=== PATIENT | female | born 2000 | race Caucasian/White ===

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

== ENCOUNTER → 2019-03-29 12:56 | Outpatient (CLI) | payer OTHER, SELFPAY ==
[2019-03-29 13:43] LABS: Absolute Neutrophil Count 3.6 X10^3/uL (2.0-7.7); Basophil# 0.07 X10^3/uL; Eosinophil# 0.18 X10^3/uL; Eosinophils% 2.6 % (0-5); Hematocrit 44.6 % (37-47); Lymphocyte % 36.1 % (19-41); Mean Corp Hgb Conc 31.4 g/dL (32-36); Mean Corpuscular Hgb 25.4 pg (27.0-32.0); Mean Corpuscular Volume 80.8 fL (81-99); Mean Platelet Vol. 10.1 fl (6.2-12.0); Monocyte# 0.53 X10^3/uL; Monocyte% 7.6 % (0-10); NRBC Flagged by Analyzer 0 % (0-5); Neutrophil # 3.63 X10^3/uL (2.7-7.7); Neutrophil % 52.4 % (47-70); Platelet Count 336 K/mm3 (150-450); RBC Distribution Width CV 14.7 % (11.6-14.6); RBC Distribution Width SD 42.9 fl (35.1-43.9); Red Blood Count 5.52 M/mm3 (4.2-5.4); White Blood Count 6.9 K/mm3 (4.4-11.0)
[2019-03-29 13:47] LABS: Anion Gap 8 (5-15); BUN 9 mg/dL (7-18); Calcium,Total 9.7 mg/dL (8.5-10.1); Chloride 107 mmol/L (98-107); Cholesterol 186 mg/dL (200); Creatinine, Serum 0.82 mg/dL (0.55-1.02); EST Glomerular Filtration Rate 95 mL/min (>60); Est Glom Filt Rate - Afr Amer 115 mL/min (>60); Glucose 88 mg/dL (74-106); High Density Lipoprotein 63 mg/dL; Potassium 4.3 mmol/L (3.5-5.1); Sodium Level 141 mmol/L (136-145); Triglycerides 138 mg/dL; Very Low Density Lipoprotein 28 mg/dL (5-40)
== END ==
PROVIDERS: Family Provider Family Medicine; PCP Family Medicine; Referring Provider Family Medicine; Visit Provider Family Medicine
DX: Z00.00 Encounter for general adult medical examination without abnormal findings (principal)
CPT/HCPCS: 80048; 80061; 85025

== ENCOUNTER 2019-10-15 01:14 | Emergency (ER) | payer OTHER, SELFPAY ==
[2019-10-15 01:16] VITALS: BP 125/73; PULSE 85; RESP 16; TEMP 36.4; O2SAT 98; BMI 31.2
--- NOTE | 2019-10-15 01:42 | RAD_ITS ---
STUDY: X-RAY LEFT FOOT, FIRST TOE REASON FOR EXAM: Female, 19 years old. Dropped a weight on lt great toe -- c/o pain entire toe TECHNIQUE: 3 view(s) of the toe were obtained. COMPARISON: None. FINDINGS: Normal visualized metatarsus. Normal metatarsophalangeal (M.T.P) joint. Normal interphalangeal joints. Normal phalanges and interphalangeal joints. There is soft tissue edema. RAD/Toe(s) Min 2 Views IMPRESSION: Soft Tissue edema. No visualized acute fracture. Electronically Signed: Ariadna Moffett MD at 2:16 EDT Tel , Service support ,
[2019-10-15 02:12] VITALS: RESP 16
--- NOTE | 2019-10-15 02:12 | ED.VIS.LOWEX ---
History of Present Illness Chief Complaint: Lower Extremity Injury Informant: Patient Occurred: Hours - 4 Mechanism/Context: Injury - accidentally dropped a heavy flat plate for weight lifting on her left great toe Context: Sudden Onset Timing: Continuous Quality of Pain: Throbbing Location: L great toe Current Severity: Severe Maximum Severity: Severe Worsened by: walking Relieved by: nothing Associated Symptoms: Negative for: Parasthesia, Weakness, Loss of Funtion Narrative: Denies other injury. Saw hematoma under her nail, try to puncture it with a hot paperclip but was unsuccessful, and it hurt too bad to continue. Past Medical History - Allergies and Home Meds Allergies/Adverse Reactions: Allergies amoxicillin trihydrate [From Augmentin] Allergy (Verified 08/05/18 08:53) Hives nickel [Nickel] Allergy (Verified 08/05/18 08:53) Rash potassium clavulanate [From Augmentin] Allergy (Verified 08/05/18 08:53) Hives Primary Care Physician: Gabriele Sanchez MD [Primary Care Provider] - Past Medical History: None Smoking Status: Never smoker Review of Systems General: Denies: Chills, Fever, Sweats Musculoskeletal: Reports: Extremity Pain Skin: Denies: Rash, Abscess Neurological: Denies: Weakness, Numbness Physical Exam Vital Signs/Narrative: Vital Signs Temp Pulse Resp BP Pulse Ox 10/15/19 01:16 97.6 F L 85 16 125/73 H 98 Inital Vital Signs reviewed: Yes - Extremity Exam Left Foot: Negative for: Limited ROM - Nontender throughout foot except for great toe Left Toe: - - Great toe tender near the IP joint where there is a subungual hematoma. No deformity or swelling. General: Well nourished, Well developed, - - NAD Skin: Normal color, No rash, Trauma - left great toe subungual hematoma beneath base of nail. no bleeding, skin/nail intact. Neurological: Alert, Oriented x3, Cranial nerves II-XII grossly intact, Normal Strength, Normal Sensation, Normal Gait Psychological: Normal affect, Normal Mood Diagnostic/Tx/Re-eval - Medical Decision Making On my interpretation, 3 views of the left great toe are negative for fracture. Subungual hematoma was treated, she is improved, dressed with a bandage and advised to use bacitracin at home until there is no more drainage. Procedures Procedure(s): Nail trephination for subungual hematoma --after isopropanol prep, using a high temperature probe, nail was trephinated over 1 of the holes that the patient had already attempted, over the hematoma. This was successful in draining blood from the area. Dressed with a bandage. ED Disposition - Plan for ED Patient: Disposition: Home or Assisted Living Diagnosis: Subungual hematoma of great toe of left foot Instructions: ED Hematoma Subungual Referrals: Gabriele Sanchez MD [Primary Care Provider] - As Needed
== END 2019-10-15 02:25 | disposition home or self-care (01) ==
PROVIDERS: Emergency Provider Emergency Medicine; PCP Family Medicine
DX: S90.212A Contusion of left great toe with damage to nail, initial encounter (principal); W22.8XXA Striking against or struck by other objects, initial encounter; Y93.9 Activity, unspecified; Y92.9 Unspecified place or not applicable
CPT/HCPCS: 11740; 11730; 73660; 99282

== ENCOUNTER → 2019-10-22 10:22 | Outpatient (CLI) | payer OTHER, SELFPAY ==
[2019-10-15 01:16] VITALS: BMI 31.2
--- NOTE | 2019-10-22 10:28 | RAD_ITS ---
STUDY: X-RAY - RIGHT ANKLE REASON FOR EXAM: Female, 19 years old. Pain. History of prior surgery. TECHNIQUE: 3 view(s) of the ankle. COMPARISON: None. FINDINGS: There is a lucency in the lateral malleolus which is likely due to to prior hardware. There is no evidence of fracture or dislocation. There are no significant degenerative changes. There are no radiodense foreign bodies. RAD/Ankle min 3 Views IMPRESSION: No fracture or dislocation. Lucency in the lateral malleolus which is likely due to prior hardware. Correlation with the patient''s surgical history is recommended. Electronically Signed: Jerson Whitmore, at 18:03 EDT Tel , Service support ,
== END ==
PROVIDERS: PCP Family Medicine; Referring Provider Nurse Practitioner Family; Visit Provider Nurse Practitioner Family
DX: S99.911A Unspecified injury of right ankle, initial encounter (principal); M25.571 Pain in right ankle and joints of right foot
CPT/HCPCS: 73610

== ENCOUNTER → 2020-03-08 | Outpatient (CLI) | payer OTHER, SELFPAY ==
[2020-03-08 11:53] VITALS: BMI 31.2
[2020-03-08 16:22] LABS: Red Blood Cells-Urine 0 SEEN /hpf (0-5)
[2020-03-08 16:53] LABS: Color, Urine Yellow (Yellow); Glucose, Dipstick Normal (Normal); Ketone-Dipstick Negative (Negative); Leukocyte Esterase-Dipstick 25 /ul (Negative); Nitrite-Dipstick Negative (Negative); Occult Blood-Urine 10 /ul (Negative); Protein-Dipstick 15 mg/dl (Negative); Specific Gravity, Urine 1.015 (1.002-1.030); Urine Bilirubin Dipstick Negative (Negative); Urine Clarity Clear (Clear); Urine Urobilinogen Normal (Normal)
[2020-03-08 16:54] LABS: Bacteria 2+ /hpf (None Seen); Squamous Epithelial Cells - UA 10-25 SEEN /hpf (5-10); White Blood Cells 0-5 SEEN /hpf (0-5)
[2020-03-08 16:55] LABS: Calcium Oxalate Crystals Ur RARE /hpf (<or=2+); Mucous, Urine 1+ /hpf (<or=2+)
== END | disposition home or self-care (01) ==
LOC: LABSPEC 15:25
PROVIDERS: PCP Family Medicine; Referring Provider Physician Assistant Surgical; Visit Provider Physician Assistant Surgical
DX: N39.0 Urinary tract infection, site not specified (principal)
CPT/HCPCS: 81001; 87086

== ENCOUNTER → 2020-03-13 07:56 | Outpatient (CLI) | payer OTHER, SELFPAY ==
[2020-03-08 11:53] VITALS: BMI 31.2
--- NOTE | 2020-03-13 08:30 | MRI_ITS ---
STUDY: MRI RIGHT KNEE REASON FOR EXAM: Female, 19 years old. Knee pain and clicking TECHNIQUE: Standardized fat and water weighted pulse sequences were obtained in all 3 orthogonal planes. COMPARISON: None. FINDINGS: Normal medial meniscus. Normal hyaline cartilage of the medial femorotibial compartment. Normal medial femoral condyle and tibial plateau. Normal medial collateral ligamentous complex (MCL). Normal distal semimembranosus, gracilis and semitendinosus tendons. Normal lateral meniscus. Normal hyaline cartilage of the lateral femorotibial compartment. Normal lateral femoral condyle and tibial plateau. Normal proximal tibiofibular articulation. Normal lateral collateral (fibular) ligament. Normal popliteus tendon. Normal biceps femoris tendon. Normal anterior cruciate ligament (ACL). Normal posterior cruciate ligament (PCL). Shallow trochlear groove with lateral subluxation of patella and edema superolateral Hoffa''s fat pad consistent with patellofemoral maltracking. Grade II chondromalacia and erosion of the lateral facet of patella with a small focus of subchondral edema. Normal medial and lateral patellar retinaculum. Normal quadriceps tendon. Normal patellar tendon. Normal Hoffa''s fat pad. There is no joint effusion. The soft tissues are unremarkable. The otherwise visualized osseous structures are unremarkable. MRI/Lower Ext Joint Only (Routine) IMPRESSION: Patellofemoral maltracking. Electronically Signed: Jacek Tai MD at 13:47 EST Tel , Service support ,
== END ==
PROVIDERS: PCP Family Medicine; Referring Provider Registered Nurse; Visit Provider Registered Nurse
DX: M25.561 Pain in right knee (principal)
CPT/HCPCS: 73721

== ENCOUNTER → 2020-03-15 10:02 | Outpatient (CLI) | payer OTHER, SELFPAY ==
[2020-03-15 08:00] VITALS: BMI 29.7
[2020-03-17 03:06] LABS: Chlamydia By Nucleic Acid AMP Negative (Negative)
[2020-03-17 09:27] LABS: Gonococcus By Nucleic Acid AMP Negative (Negative)
== END ==
PROVIDERS: PCP Family Medicine; Referring Provider Physician Assistant Surgical; Visit Provider Physician Assistant Surgical
DX: N89.8 Other specified noninflammatory disorders of vagina (principal)
CPT/HCPCS: 87491; 87591

== ENCOUNTER 2020-04-28 16:30 | Outpatient (RCR) | payer OTHER, SELFPAY ==
[2020-03-15 08:00] VITALS: BMI 29.7
--- NOTE | 2020-03-25 13:15 | HP.PTEVAL_ITS ---
Patient's Visit Information DI LIM is a 19 year old F referred to Physical Therapy by Alexei Vallejo PA-C with a diagnosis of Other disorders of the patella. Date of Evaluation: 03/25/20 Physical Therapist: Anam Issa, MEGHAT, OCS, CSCS - Visit Plan Frequency: 2-3x /Week Duration: 4-6 Weeks Plan: 3x/week for 3-6 weeks for. 1. VMO and hip stab strengthening progression to I. 2. Verify full body workout technique without knee pain. 3. strecht/rollout quad and ITB R. 4. consider bracing, 0rthotics at 3 week andres if not improving. - Subjective Insidious onset of R knee pain since ankle surgery 2014. Has had knee pain last couple years. More rated as discomfort at 1-2/10 pain at most wehn working out. Leg extension hurt as do squats. Works out daily with weightlifting and running at times. Hasn't run since December due to ankle, knee pain. Steps can hurt. Comfortable at rest. Sleep is OK. Worked in [employer] when issue started. Works at [employer] 8 hour shift [employer] it is fine. Enjoys hunting adn has other hobbies that are unaffected by knee. - Pain R knee Pain Intensity (Out of 10): 0 Pain Intensity Range: 0, 2 - Objective Walks normal, jogs normal, steps normal but painful R knee cap slightly ascending. Transfers normal bed and chair. B ITB and quad tightness apparent. weakness in hips obvious at 3+ abd and ext B, felxion is 4-. knee strength 4+/5 B ext adn flexion. ankles 4/5 B. Has mild pes planus B in feet. Patellas move well. Sensation WNL to gross light touch in LE. - varus and valgus in knees. - anterior drawer. - post sag. slight + R patellar grind. - bounce hoe B. - Goals Goal 1:: Patient feel 75% better in knee pain r Goal Time Frame: 4-6 Weeks Goal 2:: Pateint able to get through full body workout without increased pain Goal Time Frame: 4-6 Weeks Goal 3:: I appropr HEP to minimzie future problems Goal Time Frame: 4-6 Weeks Goal 4:: [id number] Goal Time Frame: 4-6 Weeks - Rehabilitation Potential Physical Therapy Diagnosis: R knee pain patellar tracking. Rehabilitation Potential: Fair - Anticipated Interventions Patient/Client Instruction: Educate patient on: Condition, Plan of Care For the Purpose of:: To decrease pain, To increase tolerance to activity/condition/position, To improve gait and locomotor functions Therapeutic Exercise to Include: Strength training, Flexibilty training For the Purpose of:: To decrease pain, To improve muscle performance and motor function, To improve ability of physical actions for home/community/work/leisure Thank you for the opportunity to evaluate your patient. For Medicare and Medicare HMO plans, please review the plan of care and approve it. It will need to be FAXED BACK to us at [phone] for Medicare purposes. For Medicare only, by signing this I certify the plan of care. Please let me know if there are questions or concerns regarding this plan of care. Physician Signature: Date:
--- NOTE | 2020-04-28 16:58 | HP.PTDCSUM ---
It has been my pleasure to treat DI LIM referred by Alexei Vallejo PA-C, with the diagnosis of Other disorders of the patella for a total of 10 visit(s). Discharge Date: 04/28/20 Please see the following information for a summary of their discharge status. Subjective: No pain walking in. No pain in 3 weeks. Been doing deadlifts. Cannot squat or stairmaster still without pain. Sleeping OK. Life normal outside of workout. R knee Pain Intensity (Out of 10): 4 % Improvement: 0 Objective/Function: Much less noise and crpitus in L knee with squats and stairmaster with orthoitc in shoe vs without it. Overall patient is feeling great outside of squats and deadlifts and stairmaster whcih she really wants to do. She needs to wear orhtotics and try these activities over the next week. then report to doctor in one week for other options if necessary. Goal 1:: Patient feel 75% better in knee pain r Goal Progress: Not Progressing Goal 2:: Pateint able to get through full body workout without increased pain Goal Progress: Not Progressing Goal 3:: I appropr HEP to minimzie future problems Goal Progress: Goal Met Goal 4:: [id number]/80 Goal Progress: slow Plan: d/c, pt to doctor next week. Discharge Comments: to doctor next week. If there are questions or concerns regarding this patient's physical therapy, please feel free to call me at [phone]. Thank you for the referral of this patient. Sincerely, Anam Issa, DPT, OCS, CSCS
== END 2020-04-28 19:00 | disposition home or self-care (01) ==
LOC: PT 16:30
PROVIDERS: PCP Family Medicine; Referring Provider Physician Assistant; Visit Provider Physician Assistant
DX: M22.8X1 Other disorders of patella, right knee (principal)
CPT/HCPCS: 97110; 97161; 97530; 97760; 97763

== ENCOUNTER → 2020-10-05 14:56 | Outpatient (CLI) | payer OTHER, SELFPAY ==
[2020-03-15 08:00] VITALS: BMI 29.7
== END ==
PROVIDERS: PCP Family Medicine
DX: B00.9 Herpesviral infection, unspecified (principal)
CPT/HCPCS: 36415

== ENCOUNTER → 2021-01-20 15:59 | Outpatient (CLI) | payer OTHER, SELFPAY ==
[2021-01-20 18:11] LABS: Absolute Lymphocyte Count 2.55 X10^3/uL (0.83-4.51); Absolute Neutrophil Count 4.8 X10^3/uL (2.0-7.7); Basophil# 0.04 X10^3/uL; Basophil% 0.5 % (0-1); Eosinophil# 0.08 X10^3/uL; Hematocrit 39.4 % (37-47); Hemoglobin 13.1 g/dL (12.0-15.0); Lymphocyte # 2.55 X10^3/ul (0.83-4.51); Mean Corp Hgb Conc 33.2 g/dL (32-36); Mean Corpuscular Hgb 26.6 pg (27.0-32.0); Mean Corpuscular Volume 80.1 fL (81-99); Mean Platelet Vol. 10.9 fl (6.2-12.0); Monocyte# 0.45 X10^3/uL; Monocyte% 5.7 % (0-10); NRBC Flagged by Analyzer 0 % (0-5); Neutrophil # 4.81 X10^3/uL (2.7-7.7); Neutrophil % 60.4 % (47-70); Platelet Count 235 K/mm3 (150-450); RBC Distribution Width SD 37.2 fl (35.1-43.9); Red Blood Count 4.92 M/mm3 (4.2-5.4)
[2021-01-20 18:30] LABS: Vitamin D,25 Hydroxy 24.9 ng/mL
[2021-01-20 18:40] LABS: ALB/GLOB Ratio 1.2 RATIO (0.9-2.4); AST(SGOT) 14 U/L (15-37); Alanine Aminotransfer ALT/SGPT 22 U/L (13-56); Albumin, Serum 4.3 g/dL (3.2-5.0); Alkaline Phosphatase 60 U/L (45-117); Anion Gap 8 (5-15); BUN 14 mg/dL (7-18); BUN/Creat Ratio 16.4 RATIO (10-20); Calcium,Total 9.1 mg/dL (8.5-10.1); Chloride 105 mmol/L (98-107); Creatinine, Serum 0.85 mg/dL (0.55-1.02); EST Glomerular Filtration Rate 89 mL/min (>60); Est Glom Filt Rate - Afr Amer 108 mL/min (>60); Globulin 3.6 g/dL (2.2-4.2); Glucose 82 mg/dL (74-106); Potassium 3.8 mmol/L (3.5-5.1); Protein, Total 7.9 g/dL (6.4-8.2); Sodium Level 137 mmol/L (136-145); Thyroid Stim Hormone (TSH) 0.81 uIU/mL (0.358-3.74)
== END ==
PROVIDERS: PCP Family Medicine; Referring Provider Nurse Practitioner Family; Visit Provider Nurse Practitioner Family
DX: R53.83 Other fatigue (principal)
CPT/HCPCS: 36415; 80053; 82306; 84443; 85025

== ENCOUNTER → 2022-11-06 | Outpatient (CLI) | payer OTHER, SELFPAY ==
[2022-11-06 12:20] LABS: Absolute Lymphocyte Count 2.47 X10^3/uL (0.83-4.51); Absolute Neutrophil Count 3.9 X10^3/uL (2.0-7.7); Basophil# 0.04 X10^3/uL; Basophil% 0.6 % (0-1); Eosinophil# 0.13 X10^3/uL; Eosinophils% 1.9 % (0-5); Hemoglobin 13.5 g/dL (12.0-15.0); Lymphocyte # 2.47 X10^3/ul (0.83-4.51); Lymphocyte % 35.2 % (19-41); Mean Corp Hgb Conc 33.8 g/dL (32-36); Mean Corpuscular Hgb 27.6 pg (27.0-32.0); Mean Corpuscular Volume 81.6 fL (81-99); Mean Platelet Vol. 10.3 fl (6.2-12.0); Monocyte# 0.49 X10^3/uL; NRBC Flagged by Analyzer 0 % (0-5); Neutrophil # 3.85 X10^3/uL (2.7-7.7); Neutrophil % 54.7 % (47-70); Platelet Count 236 K/mm3 (150-450); RBC Distribution Width CV 12.7 % (11.6-14.6); RBC Distribution Width SD 37.6 fl (35.1-43.9)
[2022-11-06 21:38] LABS: HIV - WCH Non-Reactive (Nonreactive); Hepatitis B Surface Antigen Non-Reactive (Nonreactive); Hepatitis C Antibody Non-Reactive (Nonreactive); Rubella IgG Reactive (Nonreactive); Syphilis Antibodies Non-reactive
[2022-11-09 07:08] LABS: Chlamydia By Nucleic Acid AMP Negative (Negative); Gonococcus By Nucleic Acid AMP Negative (Negative)
[2022-11-10 18:15] LABS: HPV Reflexed? NOT INDICATED
== END | disposition home or self-care (01) ==
PROVIDERS: PCP Family Medicine; Referring Provider Registered Nurse; Visit Provider Registered Nurse
DX: Z34.90 Encounter for supervision of normal pregnancy, unspecified, unspecified trimester (principal)
CPT/HCPCS: 36415; 85025; 86703; 86762; 86780; 86803; 86850; 86900; 86901; 87086; 87340; 87491; 87591; 88175; G0145

== ENCOUNTER → 2023-01-22 | Outpatient (CLI) | payer OTHER, SELFPAY ==
--- NOTE | 2023-01-22 13:29 | US_ITS ---
STUDY: SECOND AND THIRD TRIMESTER OBSTETRICAL ULTRASOUND REASON FOR EXAM: Female, 22 years old anatomy LMP: September 04, 2022. TECHNIQUE: Transabdominal and Transvaginal TECHNICAL QUALITY: Adequate. PRIOR ULTRASOUND: None. FINDINGS: There is a single intrauterine fetus. The fetus is in a breech presentation. There is demonstrated cardiac activity with a heart rate of 154 bpm. There is a normal amniotic fluid volume. The largest amniotic fluid pocket measures 4.5 cm x 6.4 cm. The amniotic fluid index (HÉCTOR) is within normal limits. The placenta is anterior in location and is not low lying. There are Grade 0 placental changes. The cervix measures 3.4 cm in length. The adnexal regions are not visualized. BIOMETRY: BPD: 4.82 cm: 20 weeks, 4 days HC: 18.58 cm: 20 weeks, 6 days AC: 15.53 cm: 20 weeks, 5 days FL: 3.27 cm: 20 weeks, 2 days CI: 73.3% FL/BPD: 67.9% FL/HC: FL/AC: 21.1% HC/AC: 1.2 age by current US: 20 weeks, 5 days. TAYLOR by current US: June 05, 2022. Estimated weight: 359 grams, +/- 54 grams, 74 %. Age by LMP: 20 weeks, 0 days. TAYLOR by LMP: June 10, 2022. ANATOMY: Cranium: Normal lateral ventricles. Normal choroid plexus. Normal cerebellum. Normal cisterna magna. Normal face, nose and lips. Chest: Normal 4-chamber heart. Abdomen/Pelvis: Normal diaphragm. Normal stomach. Normal abdominal wall. Normal cord insertion. Normal 3 vessel cord. Findings suggestive of a nuchal cord. Normal kidneys. The bladder was not visualized. Spine: Subvisualization of the spine due to position. Extremities: Normal bilateral upper extremities. Normal bilateral lower extremities. IMPRESSION: Single live uterine gestation with a mean gestational age of 20 weeks and 5 days. Limited visualization of the spine due to the position. Findings suggestive of a nuchal cord. Electronically Signed: Lorenzo Stearns MD at 8:16 EST , STUDY: FIRST TRIMESTER OBSTETRICAL ULTRASOUND REASON FOR EXAM: Female, 22 years old . Cervical length measurement. LMP: September 04, 2022 TECHNIQUE: Transvaginal TECHNICAL QUALITY: Adequate. PRIOR ULTRASOUND: None. FINDINGS: Cervical length measures 3.4 cm. US/OB Anatomy Scan IMPRESSION: Cervical length measures 3.4 cm. Electronically Signed: Lorenzo Stearns MD at 8:17 EST ,
== END | disposition home or self-care (01) ==
LOC: OPUS 13:27
PROVIDERS: PCP Family Medicine; Referring Provider Obstetrics & Gynecology; Visit Provider Obstetrics & Gynecology
DX: O09.90 Supervision of high risk pregnancy, unspecified, unspecified trimester (principal); Z3A.00 Weeks of gestation of pregnancy not specified
CPT/HCPCS: 76805; 76817

== ENCOUNTER → 2023-02-07 | Outpatient (CLI) | payer OTHER, SELFPAY ==
--- NOTE | 2023-02-07 11:37 | US_ITS ---
HISTORY: anatomy follow up for spine views -- and 4 chamber heart. TECHNIQUE: Transabdominal pelvic ultrasound was performed. 52 images. COMPARISON: 01/22/2023. FINDINGS: INTRAUTERINE GESTATION(s): Single. PRESENTATION: Cephalic. HEART MOTION: 1. 48 bpm. PLACENTA: Anterior, grade 0. No placenta previa. CERVIX: 4.1 cm long and closed AMNIOTIC FLUID: Main vertical fluid pocket 6.4 cm ANATOMY: Four-chamber heart, spine unremarkable on limited survey. US/OB Limited (No Biometrics) IMPRESSION: Single living intrauterine with unremarkable limited anatomic survey as above. Electronically Signed: Nemo Dugan MD at 10:20 EST ,
== END | disposition home or self-care (01) ==
LOC: US 11:36
PROVIDERS: PCP Family Medicine; Referring Provider Obstetrics & Gynecology; Visit Provider Obstetrics & Gynecology
DX: O09.90 Supervision of high risk pregnancy, unspecified, unspecified trimester (principal); Z3A.00 Weeks of gestation of pregnancy not specified
CPT/HCPCS: 76815

== ENCOUNTER → 2023-03-22 | Outpatient (CLI) | payer OTHER, SELFPAY ==
[2023-03-22 07:59] LABS: Absolute Lymphocyte Count 1.73 X10^3/uL (0.83-4.51); Absolute Neutrophil Count 4.4 X10^3/uL (2.0-7.7); Basophil# 0.07 X10^3/uL; Eosinophil# 0.25 X10^3/uL; Eosinophils% 3.6 % (0-5); Hemoglobin 11.7 g/dL (12.0-15.0); Lymphocyte # 1.73 X10^3/ul (0.83-4.51); Mean Corp Hgb Conc 33.4 g/dL (32-36); Mean Corpuscular Hgb 27.2 pg (27.0-32.0); Mean Corpuscular Volume 81.4 fL (81-99); Mean Platelet Vol. 9.8 fl (6.2-12.0); Monocyte# 0.48 X10^3/uL; Monocyte% 6.9 % (0-10); NRBC Flagged by Analyzer 0 % (0-5); Neutrophil # 4.36 X10^3/uL (2.7-7.7); Neutrophil % 63.1 % (47-70); Platelet Count 226 K/mm3 (150-450); RBC Distribution Width CV 12.7 % (11.6-14.6); RBC Distribution Width SD 37.5 fl (35.1-43.9); White Blood Count 6.9 K/mm3 (4.4-11.0)
[2023-03-22 08:12] LABS: Glucose Challenge Gest 1H 50g 95 mg/dL (70-140)
[2023-03-22 08:45] LABS: HIV - WCH Non-Reactive (Nonreactive); Syphilis Antibodies Non-reactive
== END | disposition home or self-care (01) ==
PROVIDERS: Referring Provider Registered Nurse; Visit Provider Registered Nurse
DX: Z34.90 Encounter for supervision of normal pregnancy, unspecified, unspecified trimester (principal)
CPT/HCPCS: 36415; 82950; 85025; 86703; 86780; 86850; 86900; 86901

== ENCOUNTER 2023-05-10 10:40 | Outpatient (CLI) | payer OTHER, SELFPAY ==
[2023-05-10 10:58] VITALS: BP 129/76; PULSE 83; TEMP 36.9
[2023-05-10 11:10] VITALS: BMI 37.0
[2023-05-10 11:14] LABS: ROM Internal Control Test YES-OK TO RESULT pt. (Internal QC)
[2023-05-10 11:34] LABS: ROM Patient Test Negative (Negative)
[2023-05-10 12:01] VITALS: BP 122/77; PULSE 81
--- NOTE | 2023-05-15 17:25 | OB.TRI.PN_ITS ---
Progress Notes Date of Service: 05/10/23 Progress Note: Patient presents for triage evaluation secondary to possible rupture of membranes FHT: 140 Moderate variability reactive no decelerations category I tracing [place]: iregular Contractions Assessment and plan: amniotic membranes intact rom negative Reactive NST, reassuring maternal and status patient discharged to home to follow-up as scheduled. See problem list details for additional plan information. Laboratory Studies: Laboratory Tests 05/10/23 Range/Units 11:05 Vag Amniotic Fld Detect Negative (Negative) Charges/Coding Procedures Urinary/Genital 52xxx-59xxx: 23617-27 non-stress test Interp
== END 2023-05-10 11:45 | disposition home or self-care (01) ==
LOC: WPOUT 10:44 → WP 10:45
PROVIDERS: Referring Provider Obstetrics & Gynecology; Visit Provider Obstetrics & Gynecology
DX: O47.9 False labor, unspecified (principal); Z3A.00 Weeks of gestation of pregnancy not specified
CPT/HCPCS: 59025; 59050; 84112; 99221; G0378

== ENCOUNTER 2023-05-11 09:08 | Outpatient (CLI) | payer OTHER, SELFPAY ==
[2023-05-11 09:27] VITALS: O2SAT 98
[2023-05-11 09:28] VITALS: BP 128/78; PULSE 96; TEMP 36.9; O2SAT 98
[2023-05-11] MEDS: Ondansetron 4 MG/2 ML Vial IV (11:11)
[2023-05-11] MEDS: Lactated Ringers 500 ML 999 ML IV (11:11)
--- NOTE | 2023-05-11 18:53 | OB.TRI.HP_ITS ---
HPI - General General Date of Service: 05/11/23 HPI Narrative DI LIM, is a 22 F who presents to [facility] with cramping, nausea and vomiting since 1am. denies LOF/VB. good fm. Maternal Data Information TAYLOR Calculator Estimated Delivery Date Method Current WG Current Estimate 06/11/23 LMP (Certain) 35w 4d PFSH PFSH Home Medications NK 11/06/22 [History Last Taken Unknown] Allergy/AdvReac Type Severity Reaction Status Date / Time amoxicillin trihydrate Allergy Hives Verified 04/30/23 14:44 [From Augmentin] nickel [Nickel] Allergy Rash Verified 04/30/23 14:44 potassium clavulanate Allergy Hives Verified 04/30/23 14:44 [From Augmentin] Surgical History History of ankle surgery S/P tonsillectomy and adenoidectomy Social History adopted: No household members: significant other 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 pets and animals: dog(s) history of recent travel: No sexually active: Yes Smoking Status: Never smoker Tobacco: How many years used: 4 how long ago did patient quit smokin yr alcohol intake: current alcohol intake frequency: holidays/special occasions only details: not while substance use type: does not use well-balanced diet: about half the time caffeine: Yes Type: coffee Number of servings: 1 eating out: 1-3 times/week during the past year weight has: remained stable what type of physical activity do you participate in: weight training frequency: 1-2 times per week duration: 60-90 minutes/day tammie/christianity: None seatbelt use: always do you feel safe at home: Yes additional social history: Arnaldo Calvert Specialist History 1 Elective abortions Hx Para 0 Spontaneous abortions Hx # Term Pregnancies Ectopic pregnancies Hx # Pregnancies Multiple births # of living children Visit Details Expected Delivery Route/Plan Labor Preferences- CB/BF classes:enc. labor support person: Kel labor intervention preferences: [] pain management options preferred: limited intervention ok with epidural if requested cut cord/dad catch: yes : yes PP control planned: [] discussed possible routes of delivery and associated risks: [] special requests: []n Plans Covid status: declined Flu vaccine: declined Tdap vaccine: declined Rhogam: given LARC form signed: declined movement and labor precautions reviewed. Problem list reviewed and updated with the most current plan of care details and appropriate orders placed. Relevant counseling for the gestational age provided. Continue routine care and follow up unless otherwise noted in visit notes/problem list details OB Flowsheet Initial Weight: 191 lb Date -?-?-?-?-?-?-?-?-?-?-?-?- EGA Weight BP Urine Prot -?-?-?-?-?-?-?-?-?-?-?-?- Glucose FHR FuHt Pres Dilation -?-?-?-?-?-?-?-?-?-?-?-?- Effaced St Visit Note 11/06/22 -?-?-?-?-?-?-?-?-?--?-?-?- 9w 0d 191 lb (+0 oz) 118/68 Negative -?-?-?-?-?-?-?-?-?-?-?-?- Negative 180 -?-?-?-?-?-?-?-?-?-?-?-?- LC- CRL 20 c/w L MP. TAYLOR 06/11/2023. considering NIPT. 12/08/22 -?-?-?-?-?-?-?-?-?-?-?-?- 13w 4d 194 lb 4 oz (+3 lb 4 oz) 97/53 Negative -?-?-?-?-?-?-?-?-?-?-?-?- Negative 156 -?-?-?-?-?-?-?-?-?-?-?-?- JV- no complaint s today. declines flu shot and declines nipt. 01/03/23 -?-?-?-?-?-?-?-?--?-?-?-?- 17w 2d 204 lb 8 oz (+13 lb 8 oz) 126/71 Negative -?-?-?-?-?-?-?-?-?-?-?-?- Negative 156 -?-?-?-?-?-?-?-?-?-?-?-?- JV- no lof, vagi nal bleeding, or dec fm. found out having a girl. 01/31/23 -?-?-?-?-?-?-?-?-?-?-?-?- 21w 2d 209 lb 2 oz (+18 lb 2 oz) 111/68 Trace -?-?-?-?-?-?-?-?-?-?-?-?- Negative 150 -?-?-?-?-?-?-?-?-?-?-?-?- LC- no vb/ctx/lo f. good fm. no concerns. needs spine repeat u/s images. 03/05/23 -?-?-?-?-?-?-?-?-?-?-?-?- 26w 0d 217 lb 8 oz (+26 lb 8 oz) 113/63 Negative -?-?-?-?-?-?-?-?-?-?-?-?- Negative 145 26 -?-?-?-?-?-?-?-?-?-?-?-?- LC_ LC- no vb/ctx/lof. good fm.2 8 week labs ordered. 03/22/23 -?-?-?-?-?-?-?-?-?-?-?-?- 28w 3d 225 lb (+34 lb) 122/83 Negative -?-?-?-?-?-?-?-?-?-?-?-?- Negative 145 28 -?-?-?-?-?-?-?-?-?-?-?-?- KW-no vb/lof/ctx . good fm. LARC and Rhogam today. Tdap discussed and wants to think about. labs reviewed. Work note for light duty 04/04/23 -?-?-?-?-?-?-?-?-?-?-?-?- 30w 2d 227 lb 4 oz (+36 lb 4 oz) 108/67 Negative -?-?-?-?-?-?-?-?-?-?-?-?- Negative 141 30 -?-?-?-?-?-?-?-?-?-?-?-?- MH-No VB, LOF. G ood FM. Denies concerns 04/19/23 -?-?-?-?-?-?-?-?-?-?-?-?- 32w 3d 229 lb (+38 lb) 121/76 Negative -?-?-?-?-?-?-?-?-?-?-?-?- Negative 140 32 -?-?-?-?-?-?-?-?-?-?-?-?- SM- no vb lof go od fm no regular ctx discussed work leave, plan off from 36-37 on and discussed off 12 weeks after 04/30/23 -?-?-?-?-?-?-?-?-?-?-?-?- 34w 0d 236 lb (+45 lb) 129/73 -?-?-?-?-?-?-?-?-?-?-?-?- 140 34 -?-?-?-?-?-?-?-?-?-?-?-?- SM- no vb lof go od fm no regualr ctx NST FHR Rate Baby A Baseline: 145 Variability:: Moderate Accelerations:: 15 x 15 NST Reactive:: Yes FHR Category:: Category I Uterine Activity:: irregular Assessment & Plan (1) Nausea & vomiting: COMMENT: 1L LR and 4mg zofran. improved symptoms following interventions. PLAN: Plan Patient presents for triage evaluation secondary to cramping/ nv. given 1L LR bolus and 4mg zofran with improved symptoms. no contractions noted after bolus with improved symptoms. FHT: Moderate variability reactive no decelerations category I tracing [place]: Contractions Assessment and plan: Reactive NST, reassuring maternal and status patient discharged to home to follow-up in office with Rx sent for zofran. See problem list details for additional plan information. Charges/Coding Procedures Urinary/Genital 52xxx-59xxx: 45355-79 non-stress test Interp
== END 2023-05-11 13:15 | disposition home or self-care (01) ==
LOC: WPOUT 09:19 → WP 09:22
PROVIDERS: Referring Provider Registered Nurse; Visit Provider Registered Nurse
DX: O21.9 Vomiting of pregnancy, unspecified (principal); Z3A.35 35 weeks gestation of pregnancy
CPT/HCPCS: 96374; 96361; 59025; 59050; 99221; J7120; G0378; J2405

== ENCOUNTER → 2023-05-15 | Outpatient (CLI) | payer OTHER, SELFPAY | END | disposition home or self-care (01) | LOC: LABSPEC 16:19 | PROVIDERS: Referring Provider Obstetrics & Gynecology; Visit Provider Obstetrics & Gynecology | DX: O09.90 Supervision of high risk pregnancy, unspecified, unspecified trimester (principal); Z3A.00 Weeks of gestation of pregnancy not specified | CPT/HCPCS: 87081 ==

== ENCOUNTER 2023-05-29 22:50 | Outpatient (CLI) | payer OTHER, SELFPAY ==
[2023-05-10 10:58] VITALS: RESP 16
[2023-05-11 09:28] VITALS: RESP 17
[2023-05-29 23:10] VITALS: BMI 38.2
[2023-05-29 23:13] VITALS: BP 121/65; PULSE 84; RESP 16; TEMP 37; O2SAT 98
[2023-05-29 23:45] LABS: ROM Internal Control Test YES-OK TO RESULT pt. (Internal QC); ROM Patient Test Negative (Negative); Record Kit Lot#, ROM+ K1374
--- NOTE | 2023-05-31 17:22 | OB.TRI.PN_ITS ---
Progress Notes Date of Service: 05/31/23 Progress Note: Patient presents for triage evaluation secondary to vaginal discharge, R/O SROM FHT: 125 Moderate variability reactive no decelerations category I tracing [place]: irregular Contractions Assessment and plan: neg ROM Reactive NST, reassuring maternal and status patient discharged to home to follow-up in office. See problem list details for additional plan information. Laboratory Studies: Laboratory Tests 05/29/23 Range/Units 23:15 Vag Amniotic Fld Detect Negative (Negative) Charges/Coding Multi Select Codes Urinary/Genital Urinary/Genital CPT Codes: 67031-26 non-stress test Interp Assessment & Plan (1) Nausea & vomiting: COMMENT: 1L LR and 4mg zofran. improved symptoms following interventions. (2) Rh negative status during : QUALIFIERS: Trimester: third trimester Qualified Code(s): O26.893 - Other specified related conditions, third trimester; Z67.91 - Unspecified blood type, Rh negative COMMENT: rhogam given at 28 weeks and pp if needed. (3) Supervision of high-risk : QUALIFIERS: Trimester: third trimester Qualified Code(s): O09.93 - Supervision of high risk , unspecified, third trimester COMMENT: PRR GIRL! 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
== END 2023-05-29 23:55 | disposition home or self-care (01) ==
LOC: WPOUT 22:57 → WP 22:58
PROVIDERS: Visit Provider Advanced Practice Midwife
DX: O99.891 Other specified diseases and conditions complicating pregnancy (principal); N89.8 Other specified noninflammatory disorders of vagina; Z3A.00 Weeks of gestation of pregnancy not specified; O98.519 Other viral diseases complicating pregnancy, unspecified trimester; B00.9 Herpesviral infection, unspecified; O26.899 Other specified pregnancy related conditions, unspecified trimester
CPT/HCPCS: 59025; 59050; 84112; 99221; G0378

== ENCOUNTER 2023-06-12 22:20 | Inpatient (IN) | payer OTHER, SELFPAY ==
[2023-06-12 21:55] VITALS: BP 143/87; PULSE 89
[2023-06-12 22:31] VITALS: BMI 38.1
[2023-06-12] MEDS: Lactated Ringers 1,000 ML 50 ML IV (22:35)
[2023-06-12 22:45] VITALS: RESP 16; TEMP 37.2; O2SAT 99
[2023-06-12 22:47] VITALS: BP 132/77; PULSE 171; PULSE 98; O2SAT 78; O2SAT 99
--- NOTE | 2023-06-12 22:48 | HP.PCM.OB_ITS ---
HPI - General General Date of Admission: 06/12/23 HPI Narrative DI LIM, is a 22 F who presents IAL 4-5 cm regular ctx no vb lof admits good fm Maternal Data Information TAYLOR Calculator Estimated Delivery Date Method Current WG Current Estimate 06/11/23 LMP (Certain) 40w 1d PFSH PFSH Medical History (Updated 06/12/23 @ 22:[address] Melanie Gold MD) Anxiety Home Medications valacyclovir 500 mg tablet (Valtrex) 500 mg PO QDAY hsv #30 tabs 05/15/23 [Rx Last Taken 05/29/23 08:00] Allergy/AdvReac Type Severity Reaction Status Date / Time amoxicillin trihydrate Allergy Hives Verified 06/12/23 22:08 [From Augmentin] nickel [Nickel] Allergy Rash Verified 06/12/23 22:08 potassium clavulanate Allergy Hives Verified 06/12/23 22:08 [From Augmentin] Surgical History (Updated 06/12/23 @ 22:35 by Edda Sebastian) History of ankle surgery History of surgery S/P tonsillectomy and adenoidectomy Social History adopted: No household members: significant other 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 pets and animals: dog(s) history of recent travel: No sexually active: Yes Smoking Status: Never smoker Tobacco: How many years used: 4 how long ago did patient quit smokin yr alcohol intake: current alcohol intake frequency: holidays/special occasions only details: not while substance use type: does not use well-balanced diet: about half the time caffeine: Yes Type: coffee Number of servings: 1 eating out: 1-3 times/week during the past year weight has: remained stable what type of physical activity do you participate in: weight training frequency: 1-2 times per week duration: 60-90 minutes/day tammie/rastafarian: None seatbelt use: always do you feel safe at home: Yes additional social history: Arnaldo Calvert Specialist History 1 Elective abortions Hx Para 0 Spontaneous abortions Hx # Term Pregnancies Ectopic pregnancies Hx # Pregnancies Multiple births # of living children Visit Details Expected Delivery Route/Plan Labor Preferences- CB/BF classes:enc. labor support person: Kel labor intervention preferences: [] pain management options preferred: limited intervention ok with epidural if requested cut cord/dad catch: yes : yes PP control planned: [] discussed possible routes of delivery and associated risks: [] special requests: []n Plans Covid status: declined Flu vaccine: declined Tdap vaccine: declined Rhogam: given LARC form signed: declined movement and labor precautions reviewed. Problem list reviewed and updated with the most current plan of care details and appropriate orders placed. Relevant counseling for the gestational age provided. Continue routine care and follow up unless otherwise noted in visit notes/problem list details OB Flowsheet Initial Weight: 191 lb Date -?-?-?-?-?-?-?-?-?-?-?-?- EGA Weight BP Urine Prot -?-?-?-?-?-?-?-?-?-?-?-?- Glucose FHR FuHt Pres Dilation -?-?-?-?-?-?-?-?-?-?-?-?- Effaced St Visit Note 11/06/22 -?-?-?-?-?-?-?-?-?-?-?-?- 9w 0d 191 lb (+0 oz) 118/68 Negative -?-?-?-?-?-?-?-?-?-?-?-?- Negative 180 -?-?-?-?-?-?-?-?-?-?-?-?- LC- CRL 20 c/w L MP. TAYLOR 06/11/2023. considering NIPT. 12/08/22 -?-?-?-?-?-?-?-?-?-?-?-?- 13w 4d 194 lb 4 oz (+3 lb 4 oz) 97/53 Negative -?-?-?-?-?-?-?-?-?-?-?-?- Negative 156 -?-?-?-?-?-?-?-?-?-?-?-?- JV- no complaint s today. declines flu shot and declines nipt. 01/03/23 -?-?-?-?-?-?-?-?-?-?-?-?- 17w 2d 204 lb 8 oz (+13 lb 8 oz) 126/71 Negative -?-?-?-?-?-?-?-?-?-?-?-?- Negative 156 -?-?-?-?-?-?-?-?-?-?-?-?- JV- no lof, vagi nal bleeding, or dec fm. found out having a girl. 01/31/23 -?-?-?-?-?-?-?-?-?-?-?-?- 21w 2d 209 lb 2 oz (+18 lb 2 oz) 111/68 Trace -?-?-?-?-?-?-?-?-?-?-?-?- Negative 150 -?-?-?-?-?-?-?-?-?-?-?-?- LC- no vb/ctx/lo f. good fm. no concerns. needs spine repeat u/s images. 03/05/23 -?-?-?-?-?-?-?-?-?-?-?-?- 26w 0d 217 lb 8 oz (+26 lb 8 oz) 113/63 Negative -?-?-?-?-?-?-?-?-?-?-?-?- Negative 145 26 -?--?-?-?-?-?-?-?-?-?-?-?- LC_ LC- no vb/ctx/lof. good fm.2 8 week labs ordered. 03/22/23 -?-?-?-?-?-?-?-?-?-?-?-?- 28w 3d 225 lb (+34 lb) 122/83 Negative -?-?-?-?-?-?-?-?-?-?-?-?- Negative 145 28 -?-?-?-?-?-?-?-?-?-?-?-?- KW-no vb/lof/ctx . good fm. LARC and Rhogam today. Tdap discussed and wants to think about. labs reviewed. Work note for light duty 04/04/23 -?-?-?-?-?-?-?-?-?-?-?-?- 30w 2d 227 lb 4 oz (+36 lb 4 oz) 108/67 Negative -?-?-?-?-?-?-?-?-?-?-?-?- Negative 141 30 -?-?-?-?-?-?-?-?-?-?-?-?- MH-No VB, LOF. G ood FM. Denies concerns 04/19/23 -?-?-?-?-?-?-?-?-?-?-?-?- 32w 3d 229 lb (+38 lb) 121/76 Negative -?-?-?-?-?-?-?-?-?-?-?-?- Negative 140 32 -?-?-?-?-?-?-?-?-?-?-?-?- SM- no vb lof go od fm no regular ctx discussed work leave, plan off from 37 on and discussed off 12 weeks after 04/30/23 -?-?-?-?-?-?-?-?-?-?-?-?- 34w 0d 236 lb (+45 lb) 129/73 -?-?-?-?-?-?-?-?-?-?-?-?- 140 34 -?-?-?-?-?-?-?-?-?-?-?-?- - no vb lof go od fm no regualr ctx 05/15/23 -?-?-?-?-?-?-?-?-?-?-?-?- 36w 1d 236 lb (+45 lb) 94/62 Negative -?-?-?-?-?-?-?-?-?-?-?-?- Negative 135 36 Cephalic 1 -?-?-?-?-?-?--?-?-?-?-?-?- 50 -2 SM- no vb lof good fm no regular ctx 05/22/23 -?-?-?-?-?-?-?-?-?-?-?-?- 37w 1d 236 lb (+45 lb) 109/73 Negative -?-?-?-?-?-?-?-?-?-?-?-?- Negative 135 38 Cephalic 2 -?-?-?-?-?-?-?-?-?-?-?-?- 60 -2 kw-no vb/l of/ctx. good fm. Valtrex started. labor precautions. 05/29/23 -?-?-?-?-?-?-?-?-?-?-?-?- 38w 1d 234 lb 2 oz (+43 lb 2 oz) 122/78 -?-?-?-?-?-?-?-?-?-?-?-?- 150 38 Cephalic 2 -?-?-?-?-?-?-?-?-?-?-?-?- 60 -2 KW- no vb/ lof/reg ctx. good fm. 06/05/23 -?-?-?-?-?-?-?-?-?-?-?-?- 39w 1d 241 lb 6 oz (+50 lb 6 oz) 120/82 Negative -?-?-?-?-?-?-?-?-?-?-?-?- Negative 140 41 Cephalic 2 -?-?-?-?-?-?-?-?-?-?-?-?- 70 -2 kw- no vb/ lof/ctx. good fm. Discussed 40-41 week IOL. discussed increased risks with IOL before 41 week and probably will be moved. understands and requesting IOL at 40 weeks 06/08/23 -?-?-?-?-?-?-?-?-?-?-?-?- 39w 4d 240 lb 4 oz (+49 lb 4 oz) 128/79 -?-?-?-?-?-?-?-?-?-?-?-?- 140 40 Cephalic 3 -?-?-?-?-?-?-?-?-?-?-?-?- 70 -2 KW- no vb/ lof/ctx. good fm. IOL set up for Sunday. membrane sweep today NST FHR Rate Baby A Baseline: 140 Variability:: Moderate Accelerations:: 15 x 15 Decelerations:: None NST Reactive:: Yes FHR Category:: Category I Uterine Activity:: q3-5 ROS Constitutional Constitutional: Reports systems reviewed and no addt'l complaints, except as documented ENT HEENT: Reports systems reviewed and no addt'l complaints, except as documented Cardiovascular Cardiovascular: Reports systems reviewed and no addt'l complaints, except as documented Respiratory/Chest Respiratory/Chest: Reports systems reviewed and no addt'l complaints, except as documented Gastrointestinal Gastrointestinal: Reports systems reviewed and no addt'l complaints, except as documented and nausea; Denies abdominal pain Genitourinary Genitourinary: Reports systems reviewed and no addt'l complaints, except as documented, contractions Details: present and frequency (regular ) and movement Details: present Musculoskeletal Musculoskeletal: Reports systems reviewed and no addt'l complaints, except as documented Integumentary Integumentary: Reports as per HPI Neurologic Neurologic: Reports systems reviewed and no addt'l complaints, except as documented Endocrine Endocrinology: Reports systems reviewed and no addt'l complaints, except as documented Vital Signs Vital Signs Vital Signs: 06/12/23 21:55 06/12/23 21:55 06/12/23 22:47 Pulse Rate 89 Blood Pressure 143/87 H 132/77 H BP Systolic 143 132 BP Diastolic 87 77 06/12/23 22:47 Pulse Rate 98 Blood Pressure BP Systolic BP Diastolic Weight Weight: 236 lb 2 oz Body Mass Index (BMI) 38.1 Physical Exam Const alert, oriented x3 and healthy appearing Constitutional Narrative: uncomfortable with contractions HEENT normocephalic and moist oral mucous membranes Head and Scalp: atraumatic Neck full ROM, no lymphadenopathy, supple and thyroid normal General: trachea midline Thyroid: thyroid normal Lymph Lymphatic: no lymphadenopathy noted Chest inspection of chest normal Resp normal respiratory effort Cardio regular rate GI normal to inspection, nondistended, normoactive bowel sounds, soft to palpation and non-tender Inspection: gravid external exam normal Bimanual Exam - Vag & Uterus: uterus non-tender Manual OB Exam: estimated gestational size appropriate, presentation cephalic, dilated, effaced and station Extremity normal to inspection General Extremity: Negative for edema Skin no rashes or lesions noted Neuro deep tendon reflexes 2+ bilaterally Motor Exam: strength 5/5 throughout and clonus absent Psych mental status grossly normal Labs Labs Labs: Blood Type O NEGATIVE Antibody Screen NEGATIVE Hct 35.0 % (37-47) L Hgb 11.7 g/dL (12.0-15.0) L Obstetrics Ultrasound Syphilis Total Ab Non-reactive Rubella IgG Antibody Reactive (Nonreactive) Hep Bs Antigen Non-Reactive (Nonreactive) Hepatitis C Antibody Non-Reactive (Nonreactive) Chlamydia DNA (DASH) Negative (Negative) N.gonorrhoeae DNA (DASH) Negative (Negative) HIV 1&2 Antibody Non-Reactive (Nonreactive) Glucose 1 Hr 50 gm 95 mg/dL (70-140) Miscellaneous Test Assessment & Plan (1) Rh negative status during : QUALIFIERS: Trimester: third trimester Qualified Code(s): O26.893 - Other specified related conditions, third trimester; Z67.91 - Unspecified blood type, Rh negative COMMENT: rhogam given at 28 weeks and pp if needed. (2) Supervision of high-risk : QUALIFIERS: Trimester: third trimester Qualified Code(s): O09.93 - Supervision of high risk , unspecified, third trimester COMMENT: PRR GIRL! TAYLOR 06/11/2023 partner: Kel (3) : QUALIFIERS: Weeks of gestation: 39 weeks Qualified Code(s): Z3A.39 - 39 weeks gestation of COMMENT: GBS neg, anatomy nl, declined ntd, genetic & carrier testing (4) Genital HSV: QUALIFIERS: Herpes simplex infection site: vulvovaginitis Qualified Code(s): A60.04 - Herpesviral vulvovaginitis COMMENT: suppression treatment at 36 weeks (5) Active labor at term: PLAN: Plan Patient presents IAL, plan expectant management for , pitocin/AROM PRN if needed. Pain management: open to epidural. GBS neg. Management of any complications: none I have reviewed the [facility] and made any clinically relevant updates.
[2023-06-12 23:15] LABS: Absolute Lymphocyte Count 2.39 X10^3/uL (0.83-4.51); Absolute Neutrophil Count 8.7 X10^3/uL (2.0-7.7); Basophil# 0.06 X10^3/uL; Basophil% 0.5 % (0-1); Eosinophil# 0.34 X10^3/uL; Eosinophils% 2.8 % (0-5); Hematocrit 34.8 % (37-47); Hemoglobin 11.4 g/dL (12.0-15.0); Lymphocyte # 2.39 X10^3/ul (0.83-4.51); Lymphocyte % 19.6 % (19-41); Mean Corp Hgb Conc 32.8 g/dL (32-36); Mean Corpuscular Hgb 24.3 pg (27.0-32.0); Mean Corpuscular Volume 74.2 fL (81-99); Monocyte# 0.69 X10^3/uL; Monocyte% 5.6 % (0-10); NRBC Flagged by Analyzer 0 % (0-5); Neutrophil # 8.69 X10^3/uL (2.7-7.7); Neutrophil % 71.1 % (47-70); Platelet Count 255 K/mm3 (150-450); RBC Distribution Width CV 13.7 % (11.6-14.6); RBC Distribution Width SD 36.5 fl (35.1-43.9); Red Blood Count 4.69 M/mm3 (4.2-5.4); White Blood Count 12.2 K/mm3 (4.4-11.0)
[2023-06-12 23:34] LABS: Amphetamine Urine VISTA NEGATIVE (<1000 ng/mL); Barbiturate Urine VISTA NEGATIVE (< 200 ng/mL); Benzodiazepine Urine VISTA NEGATIVE (< 200 ng/mL); Cocaine Urine VISTA NEGATIVE (< 300 ng/mL); Ecstacy Urine VISTA NEGATIVE (< 500 ng/mL); Methadone Urine VISTA NEGATIVE (< 300 ng/mL); PCP Urine VISTA NEGATIVE (< 25 ng/mL); THC Urine VISTA NEGATIVE (< 50 ng/mL); Vista UDS pH Range 6
[2023-06-12 23:49] LABS: Syphilis Antibodies Non-reactive
[2023-06-13] VITALS (59 sets, daily range): BP systolic 89–153; BP diastolic 50–102; PULSE 77–120; RESP 16; TEMP 36.7–37.4; O2SAT 96–99
[2023-06-13] MEDS: LACTATED RINGERS 500 ML 999 ML IV (00:47)
--- NOTE | 2023-06-13 01:26 | OP.PCM_ITS ---
Maternal Data Information TAYLOR Calculator Estimated Delivery Date Method Current Current Estimate 06/11/23 LMP (Certain) 40w 2d Vaginal Delivery Operative Information Pre-Operative Diagnosis: see a/p diagnoses Post-Operative Diagnosis: same Surgery / Procedure Performed: Spontaneous Vaginal Delivery Type of Anesthesia: Epidural Special Medications: none Estimated Blood Loss: 200 Fluids Replaced: crystalloid Findings Description of Procedure: Patient began pushing and delivered the head in the [MARY] presentation. The head was delivered atraumatically [and a loose nuchal cord ?1 was identified and the delivered through without complication]. The anterior and posterior shoulders delivered without complication followed by the rest of the and the was placed on the maternal abdomen. Delayed cord clamping was employed for approximately 60 seconds. Cord was clamped and cut and gentle traction was applied to the cord and the placenta delivered spontaneously immediately following it was noted to be intact with three-vessel cord. The perineum and vagina were inspected and [noted to have a [] degree perineal laceration which was repaired in the usual fashion with 3-0 vicryl rapide.] [ noted to have no laceration]. EBL was [200 cc]. Patient and infant tolerated delivery well. Amniotic Fluid Description: Clear Placental Delivery Description: Spontaneous Placenta Disposition: [facility] Cord Vessel Description: 3 Vessels Cord Entanglement: None Delayed Cord Clamping: Yes Post Vaginal Delivery Medications Given After Delivery: IV Pitocin Episiotomy Description: None Complication Complications: None Procedures Urinary/Genital 52xxx-59xxx: 67925 Vaginal Delivery [facility]
[2023-06-13] MEDS: fentaNYL-bupivacaine (epidural) 100 ML BAG EPIDURAL (01:39)
[2023-06-13] MEDS: Oxytocin 10 UNITS/ML Vial IM (06:06)
[2023-06-13] MEDS: Oxytocin 15 Units/NS 250ml 15 UNITS/250 ML IV.SOLN 83 UNITS IV (06:06)
--- NOTE | 2023-06-13 06:32 | EX.PCM.OBRPT ---
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 TAYLOR 06/11/2023 partner: Kel (4) Rh negative status during : QUALIFIERS: Trimester: third trimester Qualified Code(s): O26.893 - Other specified related conditions, third trimester; Z67.91 - Unspecified blood type, Rh negative COMMENT: rhogam given at 28 weeks and pp if needed. (5) Nausea & vomiting: COMMENT: 1L LR and 4mg zofran. improved symptoms following interventions. (6) Active labor at term: (7) Vaginal delivery: COMMENT: SM IAL girl 40 Maternal Data Information TAYLOR Calculator Estimated Delivery Date Method Current WG Current Estimate 06/11/23 LMP (Certain) 40w 2d Vaginal Delivery Operative Information Date of Procedure: 06/13/23 Pre-Operative Diagnosis: see a/p diagnoses Post-Operative Diagnosis: same Surgery / Procedure Performed: Spontaneous Vaginal Delivery Type of Anesthesia: Epidural Special Medications: none Estimated Blood Loss: 300 Fluids Replaced: crystalloid Findings Description of Procedure: Patient began pushing and delivered the head in the MARY presentation. The head was delivered atraumatically . The anterior and posterior shoulders delivered without complication followed by the rest of the and the infant was placed on the maternal abdomen. Delayed cord clamping was employed for approximately 60 seconds. Cord was clamped and cut and gentle traction was applied to the cord and the placenta delivered spontaneously immediately following it was noted to be intact with three-vessel cord. The perineum and vagina were inspected and noted to have a second degree perineal laceration which was repaired in the usual fashion with 3-0 vicryl rapide. . EBL was 300. Patient and infant tolerated delivery well. Amniotic Fluid Description: Clear Placental Delivery Description: Spontaneous Placenta Disposition: [facility] Cord Vessel Description: 3 Vessels Cord Entanglement: None Delayed Cord Clamping: Yes Post Vaginal Delivery Medications Given After Delivery: IV Pitocin Episiotomy Description: None Complication Complications: None Procedures Urinary/Genital [id number]: [id number] Vaginal Delivery [facility]
--- NOTE | 2023-06-13 06:33 | DCINST_ITS ---
Discharge Instructions Diet Discharge Diet: No restrictions Activity Discharge Activity: Return to Normal Activity, May Not Drive (while taking narcotic pain medications.) and May Shower May resume sexual activity in: 4-6 weeks Dressing / Incision Call your doctor if your incision/area has: Continuous Slow Oozing, Sudden Increased Bleeding, Increased Pain/ Swelling, Increased Redness and Foul Smelling Discharge Follow Up Care Please Follow Up With: Melanie Gold MD When: Call [phone] to make an appointment with your doctor in 6 weeks. If you had elevated blood pressure or 4th degree laceration, you will need to be seen in 2 weeks. Test Results: Test results from this visit will be discussed in further detail at your follow- up appointment, if applicable. Discharge Plan Admission Admit Date/Time: 06/12/23 22:20 Attending Provider: Melanie Gold Primary Care Provider: Care Physician,Cici Primary Discharge Orders/Prescriptions Prescriptions: No Action valacyclovir [Valtrex] 500 mg tablet 500 mg PO QDAY Qty: 30 12RF Referrals / Follow Up: Care Physician,Cici Primary [Primary Care Provider] - Disposition Disposition (needs filled in before D/C Order can be placed): Home, Self Care
[2023-06-13] MEDS: Rho(D) Immune Globulin 300 MCG (1500 Unit) Syringe IV (15:07)
[2023-06-13] MEDS: Naproxen 500 MG Tablet PO (16:58)
[2023-06-14] VITALS (8 sets, daily range): BP systolic 109–200; BP diastolic 60–81; PULSE 73–83; RESP 16–17; TEMP 36.2–36.8; O2SAT 97–98
[2023-06-14] MEDS: Naproxen 500 MG Tablet PO (07:48)
[2023-06-14] MEDS: Senna/Docusate Sodium 1 Tablet PO (07:48)
--- NOTE | 2023-06-14 08:05 | PCM.PN.OB ---
Subjective Subjective Patient doing well without complaints. Tolerating PO. Ambulating and voiding without difficulty. Feeding well. Denies chest pain, shortness of breath, calf pain/swelling, fevers, chills, lightheadedness. Objective Data Objective Data Vital Signs: Vital Signs Temp Pulse Resp BP Pulse Ox O2 Del Method 97.6 F L 78 16 200/74 H 97 Room Air 06/14/23 04:07 06/14/23 07:38 06/14/23 04:07 06/14/23 07:32 06/14/23 07:38 06/14/23 04:07 Oxygen Delivery Method Room Air Weight: 236 lb 2 oz Body Mass Index (BMI) 38.1 Intake & Output: Intake and Output for Last 24 Hours 06/12/23 06/13/23 06/14/23 23:59 23:59 23:59 Intake Total 1750.00 / 1750.00 Output Total 1750 / 1750 Balance 0 / 0 Lab / Micro Data 06/12/23 22:35 Labs: Laboratory Results - last 24 hr 06/13/23 09:22: Screen NEGATIVE, Baby's Blood Type O POSITIVE, Baby's SYLVIA NEGATIVE Physical Exam Const alert and oriented x3 HEENT normocephalic Eyes PERRL Neck full ROM Resp normal respiratory effort GI soft to palpation GI Narrative: FF below U Assessment & Plan (1) Vaginal delivery: COMMENT: SM IAL girl Margaret 40 (2) Rh negative status during : QUALIFIERS: Trimester: third trimester Qualified Code(s): O26.893 - Other specified related conditions, third trimester; Z67.91 - Unspecified blood type, Rh negative COMMENT: rhogam given at 28 weeks and pp if needed. 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 routine post delivery care 2. breast feeding- support given 3. rh negative 4. rubella immune 5. home today
--- NOTE | 2023-06-14 12:07 | CASEMGMT ---
Social Work Assessment Labor and Delivery Unit Patient Address:[address] [place] [address] Dr. SWANSON, [place] [id number] Phone number: [phone] Date of Referral: 06/13/23 Time of Referral:? 1015 Referred By: Melanie Gold Date of Intervention: 06/14/23 ?? Time of Intervention:? 1130 Reason for Referral:? mental health Sw completed chart review and ackowledges social work consult due to maternal mental health history. Sw presented to bedside and introduced self to mother of baby (MOB- Sugar) and father of baby (FOB- Kel). Sw explained reason for sw involvement, and noted that visitor is present. MOB notes that it is okay to complete assessment with visitor present. History obtained from: medical records, MOB and FOB Household composition: FLAQUITO states that currently residing in the family home is MOB and FOB. No concerns with housing reported at this time. Patient's parent/guardian status:? ?Parents state that they have been together for 3 years, they met at work. No concerns with domestic violence or intimate partner violence. Medical History: ?FLAQUITO is 22 year old female who is 1, para 0- now 1 following labor and delivery of . FLAQUITO received routine care during with [place]. FLAQUITO presented to hospital in active labor on 06/12/23. Baby girl, named Margaret Price, was born on [birth year] at 40 weeks gestation weighing 7lb 14oz and her apgars were 8 and 9 at one and five minutes of life, respectfully. MOB states that she is breast feeding and it is going okay. Baby will be followed by Dr. Camacho for pediatrics. Educational Status:? Both parents graduated from high school and attended trade school. No concerns with reading, learning or comprehension. Financial Status: Both parents are gainfully employed at [employer]. Infant Supplies:?? Parents have obtained all necessary baby supplies, including: car seat, safe sleep space, clothes, diapers and wipes. Childcare/Caregiver(s):? MOB will be the primary caregiver to baby along with FOB when he is not at work. Transportation:?? Both parents have their drivers license and reliable means of transportation, no barriers. Programs/Agencies Involved: ??Parents are not connected to any community resources that assist them financially at this time. Parents deny linkage to mental health services and supports at this time. ? Children Services/Legal Issues:?No history of children services involvement, no issues or concerns warranting referral to be made at this time. ?? Behavioral Health Issues: ??Mental Health History:?TIM denies mental health history. FLAQUITO states that she has history of anxiety. FLAQUITO is not prescribed any medications to help manage her mental health symptoms at this time. ?? Substance Use History:?MOB denies substance use prior to and during . FLAQUITO does have history of marijuana use- last in 2019. ? Family History:?Parents deny family history of addiction/ substance use or significant mental health diagnoses. ? Drug Screens: FLAQUITO had drug screen completed at time of admission and it was negative for all substances. ?? Family/Social Stressors:? Parents deny any issues, concerns or stressors at this time. Support Systems: FLAQUITO states that TIM is her biggest support, along with paternal grandma and a close family friend (Reilly) Depression/Shaken Baby/Safe Sleeping:? Sw educated parents on signs and symptoms of baby blues and depression and anxiety. Parents express understanding. FORebeca states that if MOB were to struggle with her mental health during this period he would be able to recognize that in her, and would know how to help and support her. Sw educated parents on shaken baby prevention and ABCs of safe sleep. Parents express understanding. ASSESSMENT:? MOB and baby admitted following labor and delivery. MOB and FOB made and maintained eye contact during completion of psychosocial assessment. MOB and FOB were quiet, but answered questions. MOB observed to provide attentive and caring hands on care of baby. Parents were receptive to sw involvement and support. Parents have obtained all necessary baby supplies and have natural supports in place. PLAN:?MOB and baby to be discharged when medically ready. ?No other services requested or indicated. Zander Niño, JUDGE'S CLERK, CONTROL MANAGER
--- NOTE | 2023-06-18 10:50 | NURSING ---
Follow up phone call performed. Pt. reports that they are doing great. She reports having more migraines but Tylenol takes it away. No blood pressure issues in . IBCLC encouraged pt. to call OBGYN to report headaches, pt. verbalized understanding. Denies further s+s, no questions or concerns.
== END 2023-06-14 13:30 | disposition home or self-care (01) | DRG 806 ==
LOC: WPOUT 22:30 → WP 22:30
PROVIDERS: Admitting Provider Obstetrics & Gynecology; Referring Provider Obstetrics & Gynecology; Visit Provider Obstetrics & Gynecology
DX: O70.1 Second degree perineal laceration during delivery (principal); Z37.0 Single live birth; O98.32 Other infections with a predominantly sexual mode of transmission complicating childbirth; A60.04 Herpesviral vulvovaginitis; O26.893 Other specified pregnancy related conditions, third trimester; Z87.891 Personal history of nicotine dependence; Z3A.39 39 weeks gestation of pregnancy; Z67.91 Unspecified blood type, Rh negative
CPT/HCPCS: 59025; 59050; 80307; 85025; 85461; 86780; 86850; 86870; 86900; 86901; 90384; 99221; J7120; G0378; J2790; J2791

== ENCOUNTER 2023-06-25 13:53 | Emergency (ER) | payer OTHER, SELFPAY ==
[2023-06-25 13:54] VITALS: BP 131/84; PULSE 96; RESP 20; TEMP 36.3; O2SAT 97; BMI 35.9
--- NOTE | 2023-06-25 14:40 | CT_ITS ---
STUDY: CT BRAIN WITHOUT CONTRAST REASON FOR EXAM: Female, 23 years old. Persistent headaches since recent . RADIATION DOSAGE (If Supplied By Facility): CTDIvol = ( 47.06 ) mGy, DLP = ( 855.03 ) mGycm TECHNIQUE: Transaxial CT imaging of the brain was performed without administration of intravenous contrast material. Individualized dose optimization techniques were used for this CT. COMPARISON: Comparison is made with prior study August 05, 2018. FINDINGS: Normal soft tissue structures. Normal calvarium. Normal size ventricles and extra-axial spaces for the patient''s age. Normal white matter tracts of the cerebral hemispheres. Normal basal ganglia and thalami. Normal brainstem. Normal cerebellum. There is no intracranial hemorrhage. There are no findings of an acute ischemic infarction. There is mucosal thickening along the posterior aspect of the right ethmoid sinus. CT/Brain/Head without Contrast IMPRESSION: Normal unenhanced CT scan of the brain. Mild degree of mucosal thickening along the posterior aspect of the right ethmoid sinus. Electronically Signed: Lorenzo Stearns MD at 15:47 EDT ,
[2023-06-25 15:05] LABS: Absolute Lymphocyte Count 2.29 X10^3/uL (0.83-4.51); Absolute Neutrophil Count 4.6 X10^3/uL (2.0-7.7); Basophil# 0.05 X10^3/uL; Basophil% 0.6 % (0-1); Eosinophil# 0.39 X10^3/uL; Hematocrit 37.5 % (37-47); Lymphocyte # 2.29 X10^3/ul (0.83-4.51); Lymphocyte % 29.2 % (19-41); Mean Corpuscular Hgb 24.5 pg (27.0-32.0); Mean Corpuscular Volume 76.5 fL (81-99); Mean Platelet Vol. 9.6 fl (6.2-12.0); Monocyte# 0.44 X10^3/uL; Monocyte% 5.6 % (0-10); NRBC Flagged by Analyzer 0 % (0-5); Neutrophil # 4.61 X10^3/uL (2.7-7.7); Platelet Count 320 K/mm3 (150-450); RBC Distribution Width CV 13.9 % (11.6-14.6); RBC Distribution Width SD 38.1 fl (35.1-43.9); White Blood Count 7.8 K/mm3 (4.4-11.0)
[2023-06-25] MEDS: 0.9% Normal Saline (1000mL) 1,000 ML 999 ML IV (15:16)
[2023-06-25] MEDS: Ondansetron 4 MG/2 ML Vial IV (15:16)
[2023-06-25 15:24] LABS: ALB/GLOB Ratio 0.8 RATIO (0.9-2.4); AST(SGOT) 22 U/L (15-37); Alanine Aminotransfer ALT/SGPT 37 U/L (13-56); Albumin, Serum 3.2 g/dL (3.2-5.0); Alkaline Phosphatase 118 U/L (45-117); Anion Gap 7 (5-15); BUN 10 mg/dL (7-18); BUN/Creat Ratio 13.9 RATIO (10-20); Calcium,Total 8.8 mg/dL (8.5-10.1); Chloride 106 mmol/L (98-107); Creatinine, Serum 0.72 mg/dL (0.55-1.02); EST Glomerular Filtration Rate 106 mL/min (>60); Est Glom Filt Rate - Afr Amer 128 mL/min (>60); Estimated Creatinine Clearance 144.42 ml/min; Globulin 3.8 g/dL (2.2-4.2); Glucose 95 mg/dL (74-106); Potassium 3.9 mmol/L (3.5-5.1); Sodium Level 138 mmol/L (136-145)
--- NOTE | 2023-06-25 15:27 | EX.ED.VIS.HA ---
HPI History of Present Illness Chief Complaint: Headache Informant: patient Narrative Narrative: Patient is a 23-year-old female approximately 2 weeks presenting with persistent headache. She states in the front of her head. Is been present since she gave on 06/12. She denies any associated vision changes, photophobia, phonophobia, leg swelling or change in headache with position. Denies any URI symptoms. Denies any associated nausea or vomiting. Denies any GI or symptoms. Denies associate fever, chills, neck pain or stiffness. The pain does not radiate. Denies any family history of any aneurysm. Took Tylenol this morning with no relief of her headache. No other complaints or concerns reported at this time. States she had a labor lasting for approximately 12 hours total with 1 epidural. It was not repositioned. No she pushed for approximately 30 minutes. Is currently breast-feeding. No increase of headache or change with breast-feeding. No other complaints or concerns reported at this time. Due to this persistent headache was sent in by [facility] [employer] Medical History Anxiety Rh negative status during Vaginal delivery Home Medications NK 06/25/23 [History Last Taken Unknown] Allergy/AdvReac Type Severity Reaction Status Date / Time amoxicillin trihydrate Allergy Hives Verified 06/25/23 13:16 [From Augmentin] nickel [Nickel] Allergy Rash Verified 06/25/23 13:16 potassium clavulanate Allergy Hives Verified 06/25/23 13:16 [From Augmentin] Surgical History History of ankle surgery History of surgery S/P tonsillectomy and adenoidectomy Social History adopted: No household members: significant other 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 pets and animals: dog(s) history of recent travel: No sexually active: Yes Smoking Status: Never smoker Tobacco: How many years used: 4 how long ago did patient quit smokin yr alcohol intake: current alcohol intake frequency: holidays/special occasions only details: not while substance use type: does not use well-balanced diet: about half the time caffeine: Yes Type: coffee Number of servings: 1 eating out: 1-3 times/week during the past year weight has: remained stable what type of physical activity do you participate in: weight training frequency: 1-2 times per week duration: 60-90 minutes/day tammie/holiness: None seatbelt use: always do you feel safe at home: Yes additional social history: Arnaldo Calvert Specialist ROS ROS ED Constitutional Constitutional ED: Denies chills or fever(s) Eyes Eyes: Denies blurry vision or change in vision ENT ENT ED: Denies ear pain, rhinorrhea or sore throat Cardiovascular Cardiovascular: Denies chest pain Respiratory/Chest Respiratory/Chest: Denies cough Gastrointestinal Gastrointestinal: Denies abdominal pain, nausea or vomiting Musculoskeletal Musculoskeletal: Denies arthralgias, myalgias or neck pain Neurologic Neurologic: Reports headache(s); Denies paresthesias or weakness Hematologic/Lymphatic Hematologic/Lymphatic: Denies easy bleeding or easy bruising EXAM Physical Exam Const Vital Signs: 06/25/23 13:54 06/25/23 15:50 Temperature 97.3 F L Temperature Source Temporal Pulse Rate 96 60 Respiratory Rate 20 H 18 Blood Pressure 131/84 H 107/73 Blood Pressure Mean 99 84 Pulse Ox 97 99 Oxygen Delivery Method Room Air Room Air Positive well nourished and well developed General Appearance ED: well developed and NAD HEENT Reports normocephalic, TM's clear and moist mucous membranes atraumatic Face and Sinus: Negative for sinus tenderness Tympanic Membrane ED: Yes TM's clear Eyes PERRL and EOMs intact bilaterally Neck no lymphadenopathy, supple, no meningeal signs and no JVD General: Negative for tenderness Resp normal respiratory effort and clear to auscultation bilaterally Cardio regular rate and regular rhythm Extremity normal to inspection General Extremety ED: Negative for edema General Extremity: Negative for edema Neuro oriented x3, CN's II-XII intact bilaterally and no sensory deficits noted Sensorium / Orientation: awake and alert Gait (Neuro): normal gait Motor Exam: strength 5/5 throughout; Negative for general weakness Psych mental status grossly normal Skin Lesions: no lesions Rashes: no rashes MDM MDM MDM Narrative Medical decision making narrative: Patient is post presenting with headache. Differential diagnosis includes tension headache, migraine headache, preeclampsia, post spinal headache (less likely as it does not change with position), subarachnoid hemorrhage (less likely given this with going on for 2 weeks with normal neurologic exam) and space-occupying lesion. Physical exam is benign. Overall patient is well-appearing. Vital signs largely normal. Initial blood pressure 131/84. Lab work looking for signs of preeclampsia as well as CT of the brain obtained as patient does not report any significant history of headaches. Will administer IV fluids and Zofran initially and if CT is negative give IV Toradol. Workup largely negative. Not consistent with preeclampsia. Blood pressure is improved in the ER with 107/73. CT of the brain does show mild degree mucosal thickening along the posterior aspect of the right ethmoid sinus. Not sure that is enough to cause her headache. I will contact [employer] but feel the patient likely can be discharged home with alternate ibuprofen Tylenol for headache control, increase fluid intake and outpatient follow-up. Patient is given dose of Imitrex prior to discharge as well. Discussed risk and benefits for refill at this time benefits outweigh the risk and there is low bioavailability/absorption from breastmilk especially with 1 dose. Case is discussed with OB on-call who states they can see her tomorrow if her headache still persist and now discuss further migraine medicine as well. Lab Data Labs: Laboratory Results - last 24 hr 06/25/23 06/25/23 14:50 15:55 WBC 7.8 RBC 4.90 Hgb 12.0 Hct 37.5 MCV 76.5 L MCH 24.5 L MCHC 32.0 RDW Std Deviation 38.1 RDW Coeff of [place] 13.9 Plt Count 320 MPV 9.6 Immature Gran % (Auto) 0.600 Neut % (Auto) 59.0 Lymph % (Auto) 29.2 [place] % (Auto) 5.6 Eos % (Auto) 5.0 Baso % (Auto) 0.6 Absolute Neuts (auto) 4.6 Absolute Lymphs (auto) 2.29 Nucleated RBC % 0 Sodium 138 Potassium 3.9 Chloride 106 Carbon Dioxide 25.0 Anion Gap 7 BUN 10 Creatinine 0.72 Estim Creat Clear Calc 144.42 Est GFR (MDRD) Af Amer 128 Est GFR (MDRD) Non-Af 106 BUN/Creatinine Ratio 13.9 Glucose 95 Calcium 8.8 Total Bilirubin 0.20 AST 22 ALT 37 Alkaline Phosphatase 118 H Total Protein 7.0 Albumin 3.2 Globulin 3.8 Albumin/Globulin Ratio 0.8 L Urine Color Yellow Urine Clarity Sl. Cloudy Urine pH 7.0 Ur Specific [place] 1.010 Urine Protein 15 H Urine Glucose (UA) Normal Urine Ketones Negative Urine Occult Blood 50 H Urine Nitrite Negative Urine Bilirubin Negative Urine Urobilinogen Normal Ur Leukocyte Esterase 500 H Urine RBC 5-10 SEEN Urine WBC 50-100 SEEN Ur Squamous Epith Cells 0-5 SEEN Amorphous Sediment 1+ PHOS Urine Bacteria RARE Urine Mucus 0 SEEN Radiography Diagnostic Testing: Clinical Impression(s) from Imaging Studies Brain CT 06/25/23 14:40 IMPRESSION: Normal unenhanced CT scan of the brain. Mild degree of mucosal thickening along the posterior aspect of the right ethmoid sinus. Electronically Signed: Lorenzo Stearns MD at 15:47 EDT , Discharge Plan Triage Chief Complaint: Headache ED Provider: Gila Caldwell Dx/Rx/DC Orders Clinical Impression: Headache Instructions: ED Headache, Tension Prescriptions: No Action NK Primary Care Provider: Melanie Gold Referrals: Yimi Lopez MD [Non-Staff -Ordering Privileges] - As Needed Melanie Gold MD [Primary Care Provider] - Activity Restrictions/Additional Instructions: Please take up to 600 mg ibuprofen every 6 hours for headache. Your workup was largely normal today. If your headache does not improve you been given referral for neurologist. I do recommend taking [id number] Flonase (1 spray in each nostril daily for 1 to 2 weeks) and daily Zyrtec (10 mg [id number]) in case there is a component of sinus headache with this. May also take Tylenol in addition to the ibuprofen for headache pain. Disposition Disposition: Home, Self Care
[2023-06-25 15:50] VITALS: BP 107/73; PULSE 60; RESP 18; O2SAT 99
[2023-06-25] MEDS: Ketorolac 15 MG/ML Vial IV (16:05)
[2023-06-25 16:06] LABS: Mucous, Urine 0 SEEN /hpf (<or=2+)
[2023-06-25 16:25] LABS: Color, Urine Yellow (Yellow); Glucose, Dipstick Normal (Normal); Ketone-Dipstick Negative (Negative); Leukocyte Esterase-Dipstick 500 /ul (Negative); Nitrite-Dipstick Negative (Negative); Occult Blood-Urine 50 /ul (Negative); Protein-Dipstick 15 mg/dl (Negative); Urine Bilirubin Dipstick Negative (Negative); Urine Clarity Sl. Cloudy (Clear); Urine Urobilinogen Normal (Normal)
--- NOTE | 2023-06-25 17:02 | NURSING ---
[id number] PORTILLO [phone] LONG [phone] CALLED OB AND ASKED FOR DR LONG TO CALL US
[2023-06-25] MEDS: SUMAtriptan 6 MG/0.5 ML Vial SC (17:08)
[2023-06-25 17:12] LABS: Amorphous Sediment 1+ PHOS; Bacteria RARE /hpf (None Seen); Red Blood Cells-Urine 5-10 SEEN /hpf (0-5); Squamous Epithelial Cells - UA 0-5 SEEN /hpf (5-10); White Blood Cells 50-100 SEEN /hpf (0-5)
[2023-06-25 17:23] VITALS: BP 116/83; PULSE 75; RESP 18; TEMP 36.5; O2SAT 99
== END 2023-06-25 17:30 | disposition home or self-care (01) ==
PROVIDERS: Emergency Provider Emergency Medicine; PCP Obstetrics & Gynecology; Visit Provider Emergency Medicine
DX: R51.9 Headache, unspecified (principal); Z87.891 Personal history of nicotine dependence
CPT/HCPCS: 70450; 80053; 81001; 85025; 96361; 96372; 96374; 96375; 99282; J7030; A4216; J2405; J3030

== ENCOUNTER 2024-07-13 14:36 | Emergency (ER) | payer OTHER, SELFPAY ==
[2024-07-13 14:36] VITALS: BP 127/81; PULSE 94; RESP 16; TEMP 36.3; O2SAT 100; BMI 40.3
--- NOTE | 2024-07-13 15:12 | EX.ED.DYSGE1 ---
HPI <CAMPBELL Agosto - Last Filed: 07/13/24 15:21> History of Present Illness Chief Complaint: Back Narrative Narrative: 24-year-old female with no stated medical history presents the emerged part with lower back pain. Patient is a couple days ago, she was picking up her daughter's toys when she felt a twinge to her lower back. She states she was sore however over this weekend, she had worsening pain. Does not radiate down her legs, no bowel or bladder incontinence. Pain is mostly worse with any position change, bending or twisting. Here for evaluation. [facility] <CAMPBELL Agosto - Last Filed: 07/13/24 15:21> [facility] Medical History Anxiety Rh negative status during Vaginal delivery Home Medications ?Medication ?Instructions ?Recorded ?Last Taken ?Type vitamin#30 30 mg iron-10 cap PO 07/25/23 Unknown History mg iron-folic acid 1 mg-omg3 capsule lidocaine 5 % topical patch 1 patch topical DAILY #15 ea 07/13/24 Unknown Rx (DermacinRx Lidocan) naproxen 500 mg tablet (Naprosyn) 500 mg PO BID PRN pain #20 tabs 07/13/24 Unknown Rx Allergy/AdvReac Type Severity Reaction Status Date / Time amoxicillin trihydrate (From Allergy Hives Verified 07/13/24 14:38 Augmentin) nickel (Nickel) Allergy Rash Verified 07/13/24 14:38 potassium clavulanate (From Allergy Hives Verified 07/13/24 14:38 Augmentin) Surgical History History of ankle surgery History of surgery S/P tonsillectomy and adenoidectomy Social History adopted: No household members: significant other 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 pets and animals: dog(s) history of recent travel: No sexually active: Yes Smoking Status: Never smoker Tobacco: How many years used: 4 how long ago did patient quit smokin yr alcohol intake: current alcohol intake frequency: holidays/special occasions only details: not while substance use type: does not use well-balanced diet: about half the time caffeine: Yes Type: coffee Number of servings: 1 eating out: 1-3 times/week during the past year weight has: remained stable what type of physical activity do you participate in: weight training frequency: 1-2 times per week duration: 60-90 minutes/day tammie/yazidi: None seatbelt use: always do you feel safe at home: Yes additional social history: Arnaldo Calvert Specialist ROS <CAMPBELL Agosto - Last Filed: 07/13/24 15:21> ROS ED ROS Narrative Constitutional: Negative for fever, chills, weight loss, weakness Eyes: Negative for vision loss, vision change, double vision ENT: Negative for any sore throat, ear pain, congestion Cardiovascular: Negative for any chest pain, tightness, palpitations Respiratory: Negative for any cough, sputum production, hemoptysis, dyspnea, dyspnea on exertion, orthopnea Gastrointestinal: Negative for any abdominal pain, nausea, vomiting, diarrhea, constipation, blood in stool, blood in vomit : Negative for any urinary frequency, dysuria, retention, blood in urine Muscle skeletal: Negative for any neck pain. Positive for lower back pain Neurological: Negative for any headache, syncope, dizziness Skin: Negative for any rashes, itching, abrasions, lacerations Psychiatric: Negative for any depression, anxiety, stress, suicidal ideation, homicidal ideation Hematologic: Negative for any excessive bruising, easy bleeding EXAM <CAMPBELL Agosto - Last Filed: 07/13/24 15:21> Physical Exam Narrative Exam Narrative: Vital signs reviewed. HEET: Head normocephalic atraumatic, TMs clear bilaterally. Posterior pharynx is clear, moist mucous membranes. Nares clear bilaterally. Neck: Supple with no lymphadenopathy or tenderness. No signs of meningismus. Cardiac: Regular rate and rhythm no murmurs gallops or rubs, equal peripheral pulses bilaterally. Respiratory: Lungs clear to auscultation bilaterally. No chest tenderness. Abdomen: Soft, nontender, nondistended. No abdominal bruit or pulsatile masses. No hepatosplenomegaly Extremities: No peripheral edema, no signs of gross trauma or deformity. Active full range of motion of all extremities. Neuro: Cranial nerves II through XII intact, no focal neurological deficits. Skin: Clean dry and intact with no rash, purpura, petechiae, vesicles or pustules. Backs/flank: No CVA tenderness, no midline spinal tenderness, no deformity. Patient is able to stand on her tiptoes, although pain is worse with flexion or extension. Muscle skeletal. There is no weakness of the lower extremities Psych: Normal mood and affect. No SI, HI or acute psychosis. Const Vital Signs: 07/13/24 14:36 Temperature 97.3 F L Temperature Source Temporal Pulse Rate 94 Respiratory Rate 16 Blood Pressure 127/81 H Blood Pressure Mean 96 Pulse Ox 100 Oxygen Delivery Method Room Air <Dr. Ishan Flowers MD - Last Filed: 07/13/24 15:27> Physical Exam Const Vital Signs: 07/13/24 14:36 Temperature 97.3 F L Temperature Source Temporal Pulse Rate 94 Respiratory Rate 16 Blood Pressure 127/81 H Blood Pressure Mean 96 Pulse Ox 100 Oxygen Delivery Method Room Air MDM <CAMPBELL Agosto - Last Filed: 07/13/24 15:21> [facility] Treatment and Re-Evaluation :: Differential diagnosis includes however is not limited to: Lumbar sprain, compression fracture, lumbar radiculopathy, sciatica Patient appears generally well, vital signs are stable, patient is nontoxic-appearing. Presenting to the emergency department complaints of lower back pain. On my physical examination, this is consistent with more of a lumbar sprain, muscle skeletal pain. There are no red flag signs. Patient has equal strength of lower extremities. Patient be given oral ibuprofen here as well as a lighted Derm patch. Patient be sent home on naproxen as well Lidoderm patches. Instructed to perform gentle stretching, ice and heat. She will given a work note for tomorrow. All questions answered, stable for discharge <Dr. Ishan Flowers MD - Last Filed: 07/13/24 15:27> [facility] Narrative Medical decision making narrative: I have personally performed a face to face assessment of the patient and have reviewed the SHIRA Note. I performed a substantive portion of the visit including all aspects of the following. My santoyo findings include: History is patient presents because of pain. It is atraumatic. She was bending over. She denies bowel bladder dysfunction. She denies saddle paresthesia anesthesia. She denies radicular pain. Movement exacerbates her pain. She does have steps where she resides and has not reported buckling of her knees going up or down the steps. She is not dragging her foot when she walks. She has not had recent dental procedure. She has no prior history of herniated disc. She denies fever or chills. Exam is patient BMI is 40.4. She has pain with movement. There is pain ovation. Straight leg test is negative. Patella and ankle reflex are 2+ and symmetric. EHLs intact bilaterally. L3-S1 dermatome are intact. DP and PT pulse are 2+ and palpable. Normal sensation L3-S1 dermatome. 5/5 strength plantar and dorsi flexion. Able to extend at the knee against resistance. Medical Decision Making in my opinion this represents muscular pain. There is no concern for cauda equina, spontaneous epidural hematoma, epidural abscess or any bony abnormality of the spine causing this. History and exam is not consistent with herniated disc either. Patient was medicated with NSAID she has no contraindication and lidocaine patch. She be discharged home with appropriate home-going instructions. Other additions or changes: [None] Discharge Plan Triage Chief Complaint: Back ED Midlevel Provider: Gabriele Lima ED Provider: Ishan Flowers Dx/Rx/DC Orders Clinical Impression: Lumbar back pain, Lumbar strain Instructions: Back Basics: A Healthy Spine, Understanding Lumbosacral Strain Prescriptions: New naproxen [Naprosyn] 500 mg tablet 500 mg PO BID PRN (Reason: pain) Qty: 20 0RF lidocaine [DermacinRx Lidocan] 5 % adhesive patch,medicated 1 patch topical DAILY Qty: 15 0RF Rx Instructions: leave on most painful area for up to 12 hrs No Action PNV #25-[id number]-vaams acid-omega3 30 mg iron-10 mg iron-1 mg capsule PO Stand Alone Forms: ED Work / School Excuse Primary Care Provider: Gabriele Sanchez Referrals: Gabriele Sanchez MD [Primary Care Provider] - Activity Restrictions/Additional Instructions: Continue to perform gentle stretching. Use naproxen, Lidoderm patches. You continue to use the [employer]. Print Language: Hungarian Disposition Disposition: Home, Self Care
[2024-07-13] MEDS: Lidocaine 5% Patch 1 PATCH TOPICAL (15:14)
[2024-07-13] MEDS: Ibuprofen 600 MG Tablet PO (15:14)
[2024-07-13 15:24] VITALS: BP 124/78; PULSE 94; RESP 16; TEMP 36.3; O2SAT 100
== END 2024-07-13 15:25 | disposition home or self-care (01) ==
PROVIDERS: Emergency Provider Emergency Medicine; PCP Family Medicine; Visit Provider Emergency Medicine
DX: S39.012A Strain of muscle, fascia and tendon of lower back, initial encounter (principal); X58.XXXA Exposure to other specified factors, initial encounter; Y93.89 Activity, other specified
CPT/HCPCS: 99282

== ENCOUNTER 2024-12-26 16:42 | Outpatient (CLI) | payer OTHER, SELFPAY ==
[2024-12-26 17:00] VITALS: BMI 37.4
--- NOTE | 2024-12-27 10:29 | OB.TRI.HP_ITS ---
HPI - General General Date of Admission: 12/26/24 Date of Service: 12/26/24 Chief Complaint: monitoring HPI Narrative DI VAUGHAN, is a 24 F who presents from the office for monitoring. She presented to the office with possible LOF after using the restroom. No gush of fluid or continuous leak that the patient has noticed. In the office there was no pooling of fluid and negative fern. Cervix was closed and thick on SSE, and cervical irritation with minimal bleeding noted after insertion of the speculum. Due to bleeding nitrazine was unable to be checked. Fern was negative however RBC's present. Patient was sent to L&D to ensure no further leaking. No ctx or pain. Good FM. PFSH PFSH Medical History Vaginal delivery Anxiety Rh negative status during Home Medications Medication Instructions Recorded Last Taken Type aspirin 81 mg tablet,delayed 81 mg PO DAILY 12/26/24 1 08:00 History release (Adult Low Dose Aspirin) 81 mg vit no.95-ferrous 1 tab PO DAILY 12/26/2411/10 08:00 History fumarate 28 mg-folic acid 800 mcg 1 TA B tablet () Allergy/AdvReac Type Severity Reaction Status Date / Time amoxicillin trihydrate (From Allergy Hives Verified 07/25/24 13:55 Augmentin) nickel (Nickel) Allergy Rash Verified 07/25/24 13:55 potassium clavulanate (From Allergy Hives Verified 07/25/24 13:55 Augmentin) Surgical History History of surgery History of ankle surgery S/P tonsillectomy and adenoidectomy Social History adopted: No household members: significant other 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 pets and animals: dog(s) history of recent travel: No sexually active: Yes Smoking Status: Never smoker Tobacco: How many years used: 4 how long ago did patient quit smokin yr alcohol intake: current alcohol intake frequency: holidays/special occasions only details: not while substance use type: does not use well-balanced diet: about half the time caffeine: Yes Type: coffee Number of servings: 1 eating out: 1-3 times/week during the past year weight has: remained stable what type of physical activity do you participate in: weight training frequency: 1-2 times per week duration: 60-90 minutes/day tammie/roman catholic: None seatbelt use: always do you feel safe at home: Yes additional social history: Arnaldo Calvert Specialist History 1 Elective abortions Hx Para 1 Spontaneous abortions Hx # Term Pregnancies 1 Ectopic pregnancies Hx # Pregnancies Multiple births # of living children 1 Past Pregnancies Del. Date Name GA/Weeks Outcome Route Bth Weight Infant Gen Labor Lgth Anesthesia Del Locatn Provider FOB 06/15/23 Margaret 40 live - full term 7lbs 11oz Female epidural [facility] Marcanthony Delivery Date: 06/15/23 Last Updated by: Prachi GARRETT NST FHR Rate Baby A Baseline: 140 Variability:: Moderate Accelerations:: 10 x 10 Decelerations:: None Uterine Activity:: no ctx's Assessment & Plan (1) 28 weeks gestation of : (2) Vaginal discharge: PLAN: ROM plus not checked due to bleeding from speculum exam. Patient was monitored on L&D and she experienced no further leaking. The RN saw no leaking of fluid during triage stay, and the patient denies any leaking. Dark blood with wiping in the office and no further bleeding in triage. No ctx's or pain. Ok for d/c home and given return precautions.
== END 2024-12-26 18:20 | disposition home or self-care (01) ==
LOC: WPOUT 16:43 → WP 16:44
PROVIDERS: PCP Family Medicine; Referring Provider Obstetrics & Gynecology; Visit Provider Obstetrics & Gynecology
DX: O99.891 Other specified diseases and conditions complicating pregnancy (principal); N89.8 Other specified noninflammatory disorders of vagina; Z3A.28 28 weeks gestation of pregnancy
CPT/HCPCS: 59025; 59050; 99221; G0378

== ENCOUNTER 2025-01-11 10:30 | Outpatient (CLI) | payer OTHER, SELFPAY ==
[2025-01-11] VITALS (11 sets, daily range): BP systolic 107–115; BP diastolic 63–71; PULSE 72–95; RESP 18; TEMP 36.7; O2SAT 98; BMI 37.7
[2025-01-11 11:07] LABS: Hematocrit 33.0 % (37-47); Hemoglobin 10.9 g/dL (12.0-15.0); Mean Corp Hgb Conc 33.0 g/dL (32-36); Mean Corpuscular Volume 75.5 fL (81-99); Mean Platelet Vol. 10.5 fl (6.2-12.0); Platelet Count 251 K/mm3 (150-450); RBC Distribution Width CV 13.6 % (11.6-14.6); RBC Distribution Width SD 36.9 fl (35.1-43.9); Red Blood Count 4.37 M/mm3 (4.2-5.4); White Blood Count 7.2 K/mm3 (4.4-11.0)
[2025-01-11 11:32] LABS: AST(SGOT) 22 U/L (<=31); Alanine Aminotransfer ALT/SGPT 25 U/L (<=34); Estimated Creatinine Clearance 210.66 ml/min (50-250); Uric Acid 3.6 mg/dL (2.6-6.0)
[2025-01-11 11:33] LABS: Creatinine, Urine (random) 279.00 mg/dL (28.00-217.00); Protein, Urine (Random) 35.2 mg/dL (0.0-12.0); Protein:Creat Ratio 126 mg/g CRE (0-200)
--- NOTE | 2025-01-11 12:27 | OB.TRI.NOTE ---
HPI - General General Date of Admission: 01/11/25 Date of Service: 01/11/25 Chief Complaint: Headache HPI Narrative DI VAUGHAN, is a 24 F who presents Headache. x 2 hours. Took her baby aspirin but has not tried Tylenol. Is tolerating PO. Had vision changes for a brief moment that involved spots. NO elevated Blood pressures. No hx of HTN or preE. No contractions or bleeding. Maternal Data Information Final TAYLOR: 03[birth year]/25 Gestational age: 29+5 PFSH PFS Medical History Vaginal delivery Anxiety Rh negative status during Home Medications Medication Instructions Recorded Last Taken Type aspirin 81 mg tablet,delayed 81 mg PO DAILY 12/26/24 01/11/25 History release (Adult Low Dose Aspirin) vit no.95-ferrous 1 tab PO DAILY 12/26/24 01/11/25 History fumarate 28 mg-folic acid 800 mcg tablet () acyclovir 400 mg tablet 400 mg PO TID 01/11/25 01/11/25 History Allergy/AdvReac Type Severity Reaction Status Date / Time amoxicillin trihydrate (From Allergy Hives Verified 01/11/25 11:11 Augmentin) nickel (Nickel) Allergy Rash Verified 01/11/25 11:11 potassium clavulanate (From Allergy Hives Verified 01/11/25 11:11 Augmentin) Surgical History History of surgery History of ankle surgery S/P tonsillectomy and adenoidectomy Social History adopted: No household members: significant other 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 pets and animals: dog(s) history of recent travel: No sexually active: Yes Smoking Status: Never smoker Tobacco: How many years used: 4 how long ago did patient quit smokin yr alcohol intake: current alcohol intake frequency: holidays/special occasions only details: not while substance use type: does not use well-balanced diet: about half the time caffeine: Yes Type: coffee Number of servings: 1 eating out: 1-3 times/week during the past year weight has: remained stable what type of physical activity do you participate in: weight training frequency: 1-2 times per week duration: 60-90 minutes/day tammie/muslim: None seatbelt use: always do you feel safe at home: Yes additional social history: Arnaldo Calvert 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 Date Name GA/Weeks Outcome [facility] Margaret 40 live - full term 7lbs 11oz Female epidural [facility] Marcanthony Delivery Date: 06/15/23 Last Updated by: Prachi Storm IOL NST FHR Rate Baby A Baseline: 150 Variability:: Moderate Accelerations:: 15 x 15 Decelerations:: None NST Reactive:: Yes Assessment & Plan (1) 29 weeks gestation of : (2) Headache in , antepartum: PLAN: Improved with Tylenol. Pre E labs negative
== END 2025-01-11 12:36 | disposition home or self-care (01) ==
LOC: WPOUT 10:41 → WP 10:41
PROVIDERS: PCP Family Medicine; Visit Provider Obstetrics & Gynecology
DX: O99.891 Other specified diseases and conditions complicating pregnancy (principal); R51.9 Headache, unspecified; Z3A.29 29 weeks gestation of pregnancy
CPT/HCPCS: 36415; 59025; 59050; 82565; 82570; 84156; 84450; 84460; 84550; 85027; 99221; G0378

== ENCOUNTER 2025-01-26 16:50 | Outpatient (CLI) | payer OTHER, SELFPAY ==
[2025-01-26 17:00] VITALS: BP 123/77; PULSE 102
[2025-01-26 17:01] VITALS: RESP 13; TEMP 36.3; O2SAT 100
[2025-01-26 17:02] VITALS: PULSE 99; O2SAT 98
--- NOTE | 2025-01-26 17:05 | OB.TRI.NOTE ---
HPI - General General Date of Service: 01/26/25 HPI Narrative DI VAUGHAN, is a 24 F @ 33 WEEKS who presents who present c/o Dark colored urine with some cramping. denies VB, LOF, fevers, chills, Dysuria. PFSH PFS Medical History Vaginal delivery Anxiety Rh negative status during Home Medications Medication Instructions Recorded Last Taken Type aspirin 81 mg tablet,delayed 81 mg PO DAILY 12/26/24 01/11/25 History release (Adult Low Dose Aspirin) vit no.95-ferrous 1 tab PO DAILY 12/26/24 01/11/25 History fumarate 28 mg-folic acid 800 mcg tablet () acyclovir 400 mg tablet 400 mg PO TID 01/11/25 01/11/25 History Allergy/AdvReac Type Severity Reaction Status Date / Time amoxicillin trihydrate (From Allergy Hives Verified 01/11/25 11:11 Augmentin) nickel (Nickel) Allergy Rash Verified 01/11/25 11:11 potassium clavulanate (From Allergy Hives Verified 01/11/25 11:11 Augmentin) Surgical History History of surgery History of ankle surgery S/P tonsillectomy and adenoidectomy Social History adopted: No household members: significant other 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 pets and animals: dog(s) history of recent travel: No sexually active: Yes Smoking Status: Never smoker Tobacco: How many years used: 4 how long ago did patient quit smokin yr alcohol intake: current alcohol intake frequency: holidays/special occasions only details: not while substance use type: does not use well-balanced diet: about half the time caffeine: Yes Type: coffee Number of servings: 1 eating out: 1-3 times/week during the past year weight has: remained stable what type of physical activity do you participate in: weight training frequency: 1-2 times per week duration: 60-90 minutes/day tammie/hoahaoism: None seatbelt use: always do you feel safe at home: Yes additional social history: Arnaldo Calvert 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 Date Name GA/Weeks Outcome Route Bth Weight Gen Labor Lgth Anesthesia Del Locatn Provider FOB 06/15/23 Margaret 40 live - full term 7lbs 11oz Female epidural [facility] Marcanthony Delivery Date: 06/15/23 Last Updated by: Prachi Storm IOL Physical Exam Narrative Abd: soft, gravid, non tender to palpation back: No cva tenderness NST FHR Rate Baby A Baseline: 150 Variability:: Moderate Accelerations:: 15 x 15 Decelerations:: None NST Reactive:: Yes FHR Category:: Category I Uterine Activity:: no ctx Assessment & Plan (1) 33 weeks gestation of : (2) Abdominal cramping affecting : PLAN: Plan @ 33 weeks - r/o UTI, cramping 1) urinalysis ordered- + blood and LE- will send for culture 2) PO fluids 3) NST- well being established- no ctx 4) F/u in office as scheduled
[2025-01-26 17:43] VITALS: BMI 39.6
[2025-01-26 18:41] LABS: Glucose, Dipstick Normal (Normal); Ketone-Dipstick Negative (Negative); Leukocyte Esterase-Dipstick 25 /ul (Negative); Nitrite-Dipstick Negative (Negative); Occult Blood-Urine 250 /ul (Negative); Protein-Dipstick 30 mg/dl (Negative); Specific Gravity, Urine 1.010 (1.002-1.030); Urine Bilirubin Dipstick Negative (Negative)
[2025-01-26 18:47] LABS: Color, Urine Amber (Yellow)
== END 2025-01-26 19:00 | disposition home or self-care (01) ==
LOC: WPOUT 16:51 → WP 16:51
PROVIDERS: PCP Family Medicine; Referring Provider Obstetrics & Gynecology; Visit Provider Obstetrics & Gynecology
DX: O99.891 Other specified diseases and conditions complicating pregnancy (principal); R10.9 Unspecified abdominal pain; Z3A.33 33 weeks gestation of pregnancy
CPT/HCPCS: 59025; 59050; 81002; 99221; G0378

== ENCOUNTER 2025-01-27 12:32 | Outpatient (CLI) | payer OTHER, SELFPAY ==
[2025-01-27 12:46] VITALS: BMI 23.7
[2025-01-27 12:51] VITALS: BP 125/75; PULSE 115
[2025-01-27 12:52] VITALS: RESP 16; TEMP 37.2
--- NOTE | 2025-01-27 17:59 | OB.TRI.NOTE ---
HPI - General HPI Narrative ID VAUGHAN, is a 24 F who presents [ at 33 week. Presents with concern for blood in urine. Decreased movement. Denies any contractions, pain, or leakage of fluid.] Maternal Data Information Final TAYLOR: 03/17/25 [facility] PFS Medical History Vaginal delivery Anxiety Rh negative status during Home Medications Medication Instructions Recorded Last Taken Type aspirin 81 mg tablet,delayed 81 mg PO DAILY 12/26/24 01/11/25 History release (Adult Low Dose Aspirin) vit no.95-ferrous 1 tab PO DAILY 12/26/24 01/11/25 History fumarate 28 mg-folic acid 800 mcg tablet () acyclovir 400 mg tablet 400 mg PO TID 01/11/25 01/11/25 History Allergy/AdvReac Type Severity Reaction Status Date / Time amoxicillin trihydrate (From Allergy Hives Verified 01/27/25 12:59 Augmentin) nickel (Nickel) Allergy Rash Verified 01/27/25 12:59 potassium clavulanate (From Allergy Hives Verified 01/27/25 12:59 Augmentin) Surgical History History of surgery History of ankle surgery S/P tonsillectomy and adenoidectomy Social History adopted: No household members: significant other 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 pets and animals: dog(s) history of recent travel: No sexually active: Yes Smoking Status: Never smoker Tobacco: How many years used: 4 how long ago did patient quit smokin yr alcohol intake: current alcohol intake frequency: holidays/special occasions only details: not while substance use type: does not use well-balanced diet: about half the time caffeine: Yes Type: coffee Number of servings: 1 eating out: 1-3 times/week during the past year weight has: remained stable what type of physical activity do you participate in: weight training frequency: 1-2 times per week duration: 60-90 minutes/day tammie/rastafari: None seatbelt use: always do you feel safe at home: Yes additional social history: Arnaldo Calvert 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 Date Name GA/Weeks Outcome Route Bth Weight Gen Labor Lgth Anesthesia Del Locatn Provider FOB 06/15/23 Margaret 40 live - full term 7lbs 11oz Female epidural [facility] Marcanthony Delivery Date: 06/15/23 Last Updated by: Prachi Storm IOL NST FHR Rate Baby A Baseline: 155 Variability:: Moderate Accelerations:: 15 x 15 Decelerations:: None NST Reactive:: Yes Uterine Activity:: None Assessment & Plan (1) 33 weeks gestation of : (2) [place] syndrome: (3) Hematuria: PLAN: Plan 1) Urine culture sent yesterday, awaiting culture 2) Will follow up outpatient with labs and urology consultation
== END 2025-01-27 14:33 | disposition home or self-care (01) ==
LOC: WPOUT 12:35 → WP 12:35
PROVIDERS: PCP Family Medicine; Referring Provider Advanced Practice Midwife; Visit Provider Advanced Practice Midwife
DX: O99.891 Other specified diseases and conditions complicating pregnancy (principal); Q87.81 Alport syndrome; Z3A.33 33 weeks gestation of pregnancy; R31.9 Hematuria, unspecified
CPT/HCPCS: 59025; 59050; 99221; G0378

== ENCOUNTER 2025-03-11 12:48 | Inpatient (IN) | payer OTHER, SELFPAY ==
[2025-03-11] VITALS (40 sets, daily range): BP systolic 100–142; BP diastolic 58–84; PULSE 71–106; RESP 13–16; TEMP 36.1–36.6; O2SAT 92–98; BMI 41.1; BMI 1930.0; BMI 20251224.0
[2025-03-11] MEDS: Lactated Ringers 1,000 ML 50 ML IV (12:45)
[2025-03-11 12:58] LABS: Hematocrit 34.9 % (37-47); Hemoglobin 11.6 g/dL (12.0-15.0); Immature Granulocytes Count 0.030 X10^3/uL (0.0-0.0); Mean Corp Hgb Conc 33.2 g/dL (32-36); Mean Corpuscular Volume 73.2 fL (81-99); Mean Platelet Vol. 10.5 fl (6.2-12.0); NRBC Flagged by Analyzer 0 % (0-5); Platelet Count 264 K/mm3 (150-450); RBC Distribution Width CV 14.6 % (11.6-14.6); RBC Distribution Width SD 38.5 fl (35.1-43.9); Red Blood Count 4.77 M/mm3 (4.2-5.4); White Blood Count 8.9 K/mm3 (4.4-11.0)
[2025-03-11] MEDS: Oxytocin 15 Units/NS 250ml 15 UNITS/250 ML IV.SOLN 2 UNITS IV (13:21)
[2025-03-11 14:23] LABS: Syphilis Antibodies Nonreactive (Nonreactive)
[2025-03-11] MEDS: Lactated Ringers 1,000 ML 999 ML IV (19:08)
[2025-03-11] MEDS: fentaNYL-bupivacaine (epidural) 100 ML BAG EPIDURAL (19:56)
[2025-03-11] MEDS: Mag /Aluminum/Simeth WCH UDC 30 ML ORAL.SUSP PO (20:09)
--- NOTE | 2025-03-11 20:20 | PCM.HP.OB ---
HPI - General General Date of Admission: 03/11/25 Date of Service: 03/11/25 Chief Complaint: Induction of labor HPI Narrative DI VAUGHAN, is a 24 F who presents induction of labor for BMI. GBS negative Maternal Data Information Final TAYLOR: 03/17/25 Gestational age: 39+1 [facility] Medical History Genital herpes affecting Vaginal delivery Anxiety Rh negative status during Home Medications ?Medication ?Instructions ?Recorded ?Last Taken ?Type aspirin 81 mg tablet,delayed 81 mg PO DAILY 12/26/24 01/15/25 History release (Adult Low Dose Aspirin) Held on 03/11/25. Instructions: pt stopped 2 mths ago vit no.95-ferrous 1 tab PO DAILY 12/26/24 03/10/25 History fumarate 28 mg-folic acid 800 mcg tablet () acyclovir 400 mg tablet 400 mg PO TID vaginal herpes 01/11/25 03/10/25 History Allergy/AdvReac Type Severity Reaction Status Date / Time amoxicillin trihydrate (From Allergy Hives Verified 03/11/25 08:18 Augmentin) nickel (Nickel) Allergy Rash Verified 03/11/25 08:18 potassium clavulanate (From Allergy Hives Verified 03/11/25 08:18 Augmentin) Surgical History History of surgery History of ankle surgery S/P tonsillectomy and adenoidectomy Social History adopted: No household members: significant other 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 pets and animals: dog(s) history of recent travel: No sexually active: Yes Smoking Status: Never smoker Tobacco: How many years used: 4 how long ago did patient quit smokin yr alcohol intake: current alcohol intake frequency: holidays/special occasions only details: not while substance use type: does not use well-balanced diet: about half the time caffeine: Yes Type: coffee Number of servings: 1 eating out: 1-3 times/week during the past year weight has: remained stable what type of physical activity do you participate in: weight training frequency: 1-2 times per week duration: 60-90 minutes/day tammie/jainism: None seatbelt use: always do you feel safe at home: Yes additional social history: Arnaldo [employer] 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 Date Name GA/Weeks Outcome Route Bth Weight Gen Labor Lgth Anesthesia Del [facility] Provider FOB 06/15/23 Margaret 40 live - full term 7lbs 11oz Female epidural [facility] Delivery Date: 06/15/23 Last Updated by: Prachi Storm IOL NST FHR Rate Baby A Baseline: 145 Variability:: Moderate Accelerations:: 15 x 15 Decelerations:: None NST Reactive:: Yes FHR Category:: Category I ROS Constitutional Constitutional: Denies fatigue, fever(s) or malaise Eyes Eyes: Denies change in vision ENT HEENT: Denies dizziness or headache(s) Cardiovascular Cardiovascular: Denies chest pain, dyspnea or lightheadedness Respiratory/Chest Respiratory/Chest: Denies cough or dyspnea Gastrointestinal Gastrointestinal: Denies change in bowel habits Genitourinary Genitourinary: Denies burning urination or genital lesions Integumentary Integumentary: Denies rash Neurologic Neurologic: Denies confusion, dizziness, headache(s), numbness or weakness Vital Signs Vital Signs Vital Signs: 03/11/25 08:11 03/11/25 08:11 03/11/25 08:12 Temperature Temperature Source Pulse Rate 87 91 Respiratory Rate Blood Pressure BP Systolic BP Diastolic Pulse Ox 95 03/11/25 08:12 03/11/25 08:12 03/11/25 08:12 Temperature Temperature Source Pulse Rate 79 Respiratory Rate Blood Pressure 125/71 H BP Systolic 125 BP Diastolic 71 Pulse Ox 94 03/11/25 08:12 03/11/25 08:12 03/11/25 08:12 Temperature Temperature Source Tympanic Pulse Rate Respiratory Rate 13 Blood Pressure BP Systolic BP Diastolic Pulse Ox 96 03/11/25 08:12 03/11/25 08:16 03/11/25 08:16 Temperature 97.8 F Temperature Source Pulse Rate 85 Respiratory Rate Blood Pressure BP Systolic BP Diastolic Pulse Ox 96 03/11/25 08:21 03/11/25 08:21 03/11/25 08:26 Temperature Temperature Source Pulse Rate 89 86 Respiratory Rate Blood Pressure BP Systolic BP Diastolic Pulse Ox 95 03/11/25 08:26 03/11/25 08:31 03/11/25 08:31 Temperature Temperature Source Pulse Rate 91 Respiratory Rate Blood Pressure BP Systolic BP Diastolic Pulse Ox 96 95 03/11/25 08:34 03/11/25 08:34 03/11/25 13:26 Temperature Temperature Source Pulse Rate 86 Respiratory Rate Blood Pressure 127/74 H BP Systolic 127 BP Diastolic 74 Pulse Ox 94 03/11/25 13:26 03/11/25 16:38 03/11/25 16:38 Temperature Temperature Source Temporal Pulse Rate 80 Respiratory Rate 16 Blood Pressure BP Systolic BP Diastolic Pulse Ox 03/11/25 16:38 03/11/25 16:38 03/11/25 16:38 Temperature 97.1 F L 97.1 F L Temperature Source Temporal Pulse Rate Respiratory Rate Blood Pressure BP Systolic BP Diastolic Pulse Ox 03/11/25 16:43 03/11/25 16:43 03/11/25 16:43 Temperature Temperature Source Pulse Rate 76 Respiratory Rate Blood Pressure 111/63 BP Systolic 111 BP Diastolic 63 Pulse Ox 93 03/11/25 17:10 03/11/25 17:10 03/11/25 17:10 Temperature Temperature Source Pulse Rate 82 Respiratory Rate 16 Blood Pressure 120/71 BP Systolic 120 BP Diastolic 71 Pulse Ox 03/11/25 17:10 03/11/25 17:44 03/11/25 17:44 Temperature Temperature Source Pulse Rate 100 Respiratory Rate Blood Pressure 122/69 H BP Systolic 122 BP Diastolic 69 Pulse Ox 97 03/11/25 17:44 03/11/25 17:44 03/11/25 17:44 Temperature Temperature Source Temporal Pulse Rate Respiratory Rate 16 Blood Pressure BP Systolic BP Diastolic Pulse Ox 96 03/11/25 18:37 03/11/25 18:37 03/11/25 18:37 Temperature Temperature Source Pulse Rate 97 Respiratory Rate Blood Pressure 111/66 BP Systolic 111 BP Diastolic 66 Pulse Ox 95 03/11/25 18:38 03/11/25 18:38 03/11/25 18:38 Temperature Temperature Source Temporal Pulse Rate 97 Respiratory Rate Blood Pressure 111/66 BP Systolic 111 BP Diastolic 66 Pulse Ox 03/11/25 18:38 03/11/25 18:38 03/11/25 18:38 Temperature 97.7 F L Temperature Source Pulse Rate Respiratory Rate 16 Blood Pressure BP Systolic BP Diastolic Pulse Ox 97 03/11/25 19:37 03/11/25 19:37 03/11/25 19:37 Temperature Temperature Source Temporal Pulse Rate 88 Respiratory Rate Blood Pressure BP Systolic BP Diastolic Pulse Ox 98 03/11/25 19:37 03/11/25 19:37 03/11/25 19:39 Temperature 97.0 F L Temperature Source Pulse Rate Respiratory Rate 16 Blood Pressure 140/84 H BP Systolic 140 BP Diastolic 84 Pulse Ox 03/11/25 19:39 03/11/25 19:42 03/11/25 19:42 Temperature Temperature Source Pulse Rate 84 85 Respiratory Rate Blood Pressure BP Systolic BP Diastolic Pulse Ox 98 03/11/25 19:43 03/11/25 19:43 03/11/25 19:43 Temperature Temperature Source Pulse Rate 88 Respiratory Rate 16 Blood Pressure 132/74 H BP Systolic 132 BP Diastolic 74 Pulse Ox 03/11/25 19:46 03/11/25 19:46 03/11/25 19:47 Temperature Temperature Source Pulse Rate 85 Respiratory Rate Blood Pressure 122/77 H BP Systolic 122 BP Diastolic 77 Pulse Ox 92 03/11/25 19:47 03/11/25 19:47 03/11/25 19:47 Temperature Temperature Source Pulse Rate 75 75 Respiratory Rate Blood Pressure BP Systolic BP Diastolic Pulse Ox 95 03/11/25 19:47 03/11/25 19:51 03/11/25 19:51 Temperature Temperature Source Pulse Rate 91 Respiratory Rate 16 Blood Pressure 129/84 H BP Systolic 129 BP Diastolic 84 Pulse Ox 03/11/25 19:51 03/11/25 19:52 03/11/25 19:52 Temperature Temperature Source Pulse Rate 87 Respiratory Rate 16 Blood Pressure BP Systolic BP Diastolic Pulse Ox 98 03/11/25 19:57 03/11/25 19:57 03/11/25 19:57 Temperature Temperature Source Pulse Rate 106 H Respiratory Rate Blood Pressure 123/70 H BP Systolic 123 BP Diastolic 70 Pulse Ox 98 03/11/25 19:57 03/11/25 20:02 03/11/25 20:02 Temperature Temperature Source Pulse Rate 93 Respiratory Rate 16 Blood Pressure BP Systolic BP Diastolic Pulse Ox 97 03/11/25 20:03 03/11/25 20:03 03/11/25 20:03 Temperature Temperature Source Pulse Rate 93 Respiratory Rate 16 Blood Pressure 129/65 H BP Systolic 129 BP Diastolic 65 Pulse Ox 03/11/25 20:03 03/11/25 20:07 03/11/25 20:07 Temperature 97.4 F L Temperature Source Pulse Rate 91 Respiratory Rate Blood Pressure 124/63 H BP Systolic 124 BP Diastolic 63 Pulse Ox 03/11/25 20:07 03/11/25 20:12 03/11/25 20:12 Temperature Temperature Source Pulse Rate 86 Respiratory Rate Blood Pressure BP Systolic BP Diastolic Pulse Ox 94 93 03/11/25 20:13 03/11/25 20:13 03/11/25 20:16 Temperature Temperature Source Pulse Rate 91 95 Respiratory Rate Blood Pressure 130/66 H BP Systolic 130 BP Diastolic 66 Pulse Ox 03/11/25 20:16 03/11/25 20:17 03/11/25 20:17 Temperature Temperature Source Pulse Rate 96 Respiratory Rate Blood Pressure 123/69 H BP Systolic 123 BP Diastolic 69 Pulse Ox 92 03/11/25 20:17 03/11/25 20:17 Temperature Temperature Source Pulse Rate 103 H Respiratory Rate Blood Pressure BP Systolic BP Diastolic Pulse Ox 96 Weight Weight: 115.666 kg Body Mass Index (BMI) 41.1 PRE- weight 113.398 kg PRE- Body Mass Index 40.1 (BMI) Physical Exam Const alert and no apparent distress General Appearance: cooperative HEENT normocephalic Resp normal respiratory effort Cardio regular rate GI soft to palpation GI Narrative: gravid, nontender, appropriate for gestational age Extremity no calf tenderness General Extremity: edema Skin no wounds Rashes: No rashes noted Psych activity/motor behavior normal Labs Labs Labs: Blood Type O NEGATIVE Antibody Screen NEGATIVE Hct, (37-47) 34.9 % L Hgb, (12.0-15.0) 11.6 g/dL L Obstetrics Ultrasound Syphilis Total Ab, (Nonreactive) Nonreactive Rubella IgG Antibody, (Nonreactive) Reactive Hep Bs Antigen, (Nonreactive) Non-Reactive Hepatitis C Antibody, (Nonreactive) Non-Reactive Chlamydia DNA (DASH), (Negative) Negative N.gonorrhoeae DNA (DASH), (Negative) Negative HIV 1&2 Antibody, (Nonreactive) Non-Reactive Glucose 1 Hr 50 gm, (70-140) 95 mg/dL Rhogam given: Yes Miscellaneous Test Assessment & Plan (1) 39 weeks gestation of : (2) Obesity affecting : QUALIFIERS: Trimester: third trimester Obesity type affecting : unspecified obesity Qualified Code(s): O99.213 - Obesity complicating , third trimester PLAN: Plan Pitocin per protocol. Epidural prn
--- NOTE | 2025-03-11 20:24 | PN.OBGYN_ITS ---
Subjective Subjective AROM for clear fluid. [address] Objective Data Objective Data Vital Signs: Vital Signs Temp Pulse Resp BP Pulse Ox 97.4 F L 87 16 118/70 94 03/11/25 20:03 03/11/25 20:23 03/11/25 20:03 03/11/25 20:22 03/11/25 20:23 Weight: 115.666 kg Body Mass Index (BMI) 41.1 Intake & Output: Intake and Output for Last 24 Hours 03/09/25 03/10/25 03/11/25 23:59 23:59 23:59 Intake Total 1359.37 / 1359.37 Balance 1359.37 / 1359.37 Lab / Micro Data 03/11/25 12:45 Labs: Laboratory Results - last 24 hr 03/11/25 12:45: WBC 8.9, RBC 4.77, Hgb 11.6 L, Hct 34.9 L, MCV 73.2 L, MCH 24.3 L, MCHC 33.2, RDW Std Deviation 38.5, RDW Coeff of [place] 14.6, Plt Count 264, MPV 10.5, Immature Gran % (Auto) 0.300, Neut % (Auto) 59.3, Lymph % (Auto) 31.4, [place] % (Auto) 5.6, Eos % (Auto) 2.9, Baso % (Auto) 0.5, Absolute Neuts (auto) 5.3, Absolute Lymphs (auto) 2.79, Nucleated RBC % 0, Syphilis Total Ab Nonreactive, Blood Type O NEGATIVE, Antibody Screen NEGATIVE NST FHR Rate Baby A Baseline: 145 Variability:: Moderate Accelerations:: 15 x 15 Decelerations:: None FHR Category:: Category I Uterine Activity:: q 2 Assessment & Plan (1) Obesity affecting : QUALIFIERS: Trimester: third trimester Obesity type affecting : unspecified obesity Qualified Code(s): O99.213 - Obesity complicating , third trimester (2) 39 weeks gestation of : PLAN: Plan Expectant management
[2025-03-11] MEDS: Lactated Ringers 1,000 ML 200 ML IV (21:22)
[2025-03-12] VITALS (40 sets, daily range): BP systolic 110–136; BP diastolic 62–83; PULSE 75–102; RESP 16–18; TEMP 36.2–36.7; O2SAT 80–98
--- NOTE | 2025-03-12 00:19 | OB.VAGDELI_ITS ---
Assessment & Plan (1) (spontaneous vaginal delivery): Maternal Data Information Final TAYLOR: 03/17/25 Gestational age: 39+1 Vaginal Delivery Maternal Presentation Maternal Presentation: Medically Indicated Induction Type of Induction: Pitocin and Amniotomy Vaginal Delivery Information Procedure Performed: Spontaneous Vaginal Delivery Surgeon/Practitioner: Niki Shahid Date of Procedure: 03/11/25 Pre-Procedure Diagnosis: term Post-Procedure Diagnosis: Type of anesthesia: Epidural Estimated Blood Loss: 150 cc Time of Delivery: 23:59 Findings Description of procedure: Pitocin induction of labor. AROM at 3 cm. Patient quickly progressed to complete and pushed over an intact perineum. The vertex delivered MARY with a loose nuchal cord that was easily reduced. The anterior and posterior shoulders delivered easily followed by the remainder of the body. The infant was placed on the maternal abdomen. The cord was clamped and cut after one minute. Cord blood was collected. The placenta delivered with gentle traction. A second degree laceration was repaired with 2-0 Vicryl. All sponge needle and instruments were correct. Presentation: Vertex and MARY Amniotic Membrane Rupture Type: Artificial Amniotic Fluid Description: Clear Placental Delivery Description: Spontaneous Placenta Disposition: [facility] Specimen collected: No Cord Vessel Description: 3 Vessels Cord Entanglement: Around neck x 1, loose Nuchal Cord Compression: Without compression A Gender: Male (1 minute): 8 (5 minute): 9 Delayed Cord Clamping: Yes Violin Tutor speech language pathologist travel: No Post Vaginal Deli Medications given after delivery: IV Pitocin Episiotomy Description: None Laceration: Midline and 1st degree Complication Complications: No
[2025-03-12] MEDS: Oxytocin 15 Units/NS 250ml 15 UNITS/250 ML IV.SOLN 83 UNITS IV (00:33)
[2025-03-12] MEDS: 0.9% Saline Lock 10 ML Syringe IV (04:43)
[2025-03-12] MEDS: Rho(D) Immune Globulin 300 MCG (1500 Unit) Syringe IV (06:32)
--- NOTE | 2025-03-12 06:46 | PCM.PN.OB ---
Subjective Subjective Doing well. Ambulating and voiding without difficulty. Mild lochia. Breast feeding. Objective Data Objective Data Vital Signs: Vital Signs Temp Pulse Resp BP Pulse Ox O2 Del Method 97.7 F L 92 16 116/83 H 97 Room Air 03/12/25 03:44 03/12/25 03:44 03/12/25 03:44 03/12/25 03:44 03/12/25 03:44 03/12/25 03:44 Oxygen Delivery Method Room Air Weight: 115.666 kg Body Mass Index (BMI) 41.1 Intake & Output: Intake and Output for Last 24 Hours 03/10/25 03/11/25 03/12/25 23:59 23:59 23:59 Intake Total 1645.01 / 1645.01 836.00 / 836.00 Output Total 350 / 350 700 / 700 Balance 1295.01 / 1295.01 136.00 / 136.00 Lab / Micro Data 03/11/25 12:45 Labs: Laboratory Results - last 24 hr 03/11/25 12:45: WBC 8.9, RBC 4.77, Hgb 11.6 L, Hct 34.9 L, MCV 73.2 L, MCH 24.3 L, MCHC 33.2, RDW Std Deviation 38.5, RDW Coeff of [place] 14.6, Plt Count 264, MPV 10.5, Immature Gran % (Auto) 0.300, Neut % (Auto) 59.3, Lymph % (Auto) 31.4, [place] % (Auto) 5.6, Eos % (Auto) 2.9, Baso % (Auto) 0.5, Absolute Neuts (auto) 5.3, Absolute Lymphs (auto) 2.79, Nucleated RBC % 0, Syphilis Total Ab Nonreactive, Blood Type O NEGATIVE, Antibody Screen NEGATIVE 03/12/25 04:55: Screen NEGATIVE, Baby's Blood Type A POSITIVE, Baby's SYLVIA NEGATIVE ROS Constitutional Constitutional: Denies headache(s) Cardiovascular Cardiovascular: Denies chest pain or dyspnea Gastrointestinal Gastrointestinal: Denies nausea or vomiting Genitourinary Genitourinary: Denies dysuria Physical Exam Const alert, oriented x3 and no apparent distress General Appearance: cooperative and comfortable Eyes PERRL and EOMs intact bilaterally Resp normal respiratory effort GI soft to palpation and non-tender Narrative: Fundus firm, below umbilicus. Uterus Palpation: uterus fundus firm ( below umbilicus) Extremity normal to inspection and full ROM Neuro oriented x3 and CN's II-XII intact bilaterally Psych mental status grossly normal Assessment & Plan (1) (spontaneous vaginal delivery): PLAN: Plan Routine care
[2025-03-12] MEDS: Benzocaine/Lanolin/Aloe Vera 85 GM Spray 1 SPRAY TOPICAL (16:23)
[2025-03-12] MEDS: GLYCERIN/WITCH HAZEL (TUCKS) MED..PAD 1 EACH TOPICAL (16:23)
== END 2025-03-13 01:20 | disposition home or self-care (01) | DRG 807 ==
PROVIDERS: Admitting Provider Obstetrics & Gynecology; PCP Family Medicine; Referring Provider Obstetrics & Gynecology; Visit Provider Obstetrics & Gynecology
DX: O99.214 Obesity complicating childbirth (principal); Z37.0 Single live birth; O69.81X0 Labor and delivery complicated by cord around neck, without compression, not applicable or unspecified; O70.1 Second degree perineal laceration during delivery; Z3A.39 39 weeks gestation of pregnancy; Z79.82 Long term (current) use of aspirin; Z86.19 Personal history of other infectious and parasitic diseases
CPT/HCPCS: 59025; 59050; 85025; 85461; 86780; 86850; 86900; 86901; 90384; 99221; A4216; G0378; J2790; J2791